=== PATIENT | male | born 1935 | race Caucasian/White ===

== ENCOUNTER 2017-02-17 09:39 | Outpatient (CLI) | payer MEDICARE, BC | END 2017-02-17 09:40 | disposition short-term general hospital (02) | DX: S01.01XA Laceration without foreign body of scalp, initial encounter (principal); M54.2 Cervicalgia; W22.8XXA Striking against or struck by other objects, initial encounter; W18.30XA Fall on same level, unspecified, initial encounter | CPT/HCPCS: A0425; A0429 ==

== ENCOUNTER 2017-07-27 14:08 | Outpatient (CLI) | payer MEDICARE, BC | END 2017-07-27 14:09 | disposition critical access hospital (66) | LOC: EMS 14:08 | PROVIDERS: ATTEND Surgery | DX: R03.1 Nonspecific low blood-pressure reading (principal); Z79.01 Long term (current) use of anticoagulants | CPT/HCPCS: A0425; A0429 ==

== ENCOUNTER 2017-07-27 14:39 | Emergency (ER) | payer MEDICARE, BC ==
--- NOTE | 2017-07-27 15:10 | ED Physician Documentation ---
History of Present Illness - Stated complaint Stated Complaint: LOW BLOOD PRESSURE - Chief complaint Chief Complaint: General - History obtained from History obtained from: Patient, Family () - History of Present Illness Timing: Today (82-year-old gentleman with history of coronary disease status post remote BiPAP, obstructive sleep apnea, A. fib on warfarin, and chronic kidney disease. He says he feels fine and has no complaints but per the he has been off balance and acting like he is lightheaded and he had low blood pressures for home health prior to arrival. They were lower on the right than the left but he does have a history of a subclavian stent on the right. He denies chest pain, back pain. There is some pedal edema and weight gain. He says he is not short of breath but the says that he takes his CPAP off at night and has been struggling to breathe without that on.) Review of Systems Constitutional: denies: Fever, Chills, Fatigue Nose: denies: Rhinorrhea / runny nose, Congestion Cardiac: denies: Chest pain / pressure, Palpitations Respiratory: reports: Dyspnea (He says no, the says he appears short of breath). denies: Cough GI: denies: Abdominal Pain, Nausea, Vomiting, Diarrhea, Bloody / black stool PD PAST MEDICAL HISTORY - Past Medical History Past Medical History: Yes Cardiovascular: Hypertension, High cholesterol Respiratory: None Neuro: CVA, Peripheral neuropathy Endocrine/Autoimmune: Type 2 diabetes GI: None : None HEENT: Chronic vision loss Psych: None Musculoskeletal: None Derm: None - Past Surgical History Past Surgical History: Yes General: Cholecystectomy Cardiovascular: Pacemaker - Present Medications Home Medications: Ambulatory Orders Medication Instructions Recorded Confirmed Allopurinol 100 mg PO DAILY 03/03/14 07/27/17 Aspirin 81 mg PO DAILY 03/03/14 07/27/17 Carvedilol [Coreg] 6.25 mg PO BID 03/03/14 07/27/17 Furosemide [Lasix] 20 mg PO QDAC 03/03/14 07/27/17 Insulin Glargine,Hum.rec.anlog 15 units SQ DAILY 03/03/14 07/27/17 [Lantus] Losartan Potassium [Cozaar] 12.5 mg PO DAILY 03/03/14 07/27/17 Ranitidine HCl [Zantac] 1 tab PO QDAC 03/03/14 07/27/17 Sertraline HCl 50 mg PO DAILY 03/03/14 07/27/17 Warfarin [Coumadin] 5 mg PO DAILY 03/03/14 07/27/17 Atorvastatin Calcium [Lipitor] 80 mg PO DAILY 10/25/15 07/27/17 Cholecalciferol (Vitamin D3) 1,000 unit PO DAILY 10/25/15 07/27/17 [Vitamin D3] Multivitamin [Daily Multiple 1 each PO DAILY 10/25/15 07/27/17 Vitamin] Ciprofloxacin HCl [Cipro] 500 mg PO BID #14 tablet 07/27/17 Rosuvastatin Calcium 20 mg PO DAILY 07/27/17 07/27/17 - Allergies Allergies/Adverse Reactions: Allergies Allergy/AdvReac Type Severity Reaction Status Date / Time Sulfa (Sulfonamide Allergy Rash Verified 07/27/17 14:44 Antibiotics) - Social History Does the pt smoke?: Yes Smoking Status: Current every day smoker Does the pt drink ETOH?: No Does the pt have substance abuse?: No - Immunizations Immunizations are current?: No Immunizations: TDAP >10years/unknown - POLST Patient has POLST: No PD ED PE NORMAL - Vitals Vital signs reviewed: Yes - General General: Alert and oriented X 3, No acute distress - HEENT HEENT: PERRL, EOMI - Neck Neck: Supple, no meningeal sign, No bony TTP - Cardiac Cardiac: Other (Irregularly irregular without murmur) - Respiratory Respiratory: No respiratory distress, Clear bilaterally - Abdomen Abdomen: Normal bowel sounds, Soft, Non tender - Derm Derm: Normal color, Warm and dry - Extremities Extremities: Other (Mild to moderate pitting pedal edema of both legs without calf tenderness.) - Neuro Neuro: Alert and oriented X 3 - Psych Psych: Normal mood, Normal affect Results - Vitals Vitals: Vital Signs - 24 hr 07/27/17 07/27/17 14:40 15:13 Temperature 36.1 C L Heart Rate 69 71 Respiratory 16 16 Rate Blood Pressure 128/59 L 121/72 O2 Saturation 94 99 Oxygen O2 Source Room air - EKG (time done) 1538 Rate: Rate (enter#) (60) Rhythm: Atrial fibrillation, Paced Intervals: LBBB Computer interpretation: Agree with computer - Labs Labs: Laboratory Tests 07/27/17 07/27/17 07/27/17 15:10 15:10 15:10 WBC 10.1 RBC 3.60 L Hgb 10.4 L Hct 31.3 L MCV 86.9 MCH 29.0 MCHC 33.4 RDW 15.7 H Plt Count 190 MPV 7.5 Neut # 6.5 Lymph # 2.8 Merrick # 0.5 Eos # 0.2 Baso # 0.1 Absolute Nucleated RBC 0.00 Nucleated RBC % 0.0 PT 23.9 H INR 2.1 H Sodium 133 L Potassium 4.8 Chloride 102 Carbon Dioxide 23 Anion Gap 8.0 BUN 37 H Creatinine 2.8 H Estimated GFR (MDRD) 22 L Glucose 210 H Calcium 9.7 Total Bilirubin 0.5 AST 17 ALT 16 Alkaline Phosphatase 92 Troponin I B-Natriuretic Peptide Total Protein 6.5 L Albumin 3.3 Globulin 3.2 Albumin/Globulin Ratio 1.0 Lipase 51 Urine Color Urine Clarity Urine pH Ur Specific [place] Urine Protein Urine Glucose (UA) Urine Ketones Urine Occult Blood Urine Nitrite Urine Bilirubin Urine Urobilinogen Ur Leukocyte Esterase Urine RBC Urine WBC Urine WBC Clumps Ur Epithelial Cells Ur Squamous Epith Cells Urine Bacteria Ur Microscopic Review Urine Culture Comments 07/27/17 07/27/17 07/27/17 15:10 15:10 15:20 WBC RBC Hgb Hct MCV MCH MCHC RDW Plt Count MPV Neut # Lymph # Merrick # Eos # Baso # Absolute Nucleated RBC Nucleated RBC % PT INR Sodium Potassium Chloride Carbon Dioxide Anion Gap BUN Creatinine Estimated GFR (MDRD) Glucose Calcium Total Bilirubin AST ALT Alkaline Phosphatase Troponin I 0.06 B-Natriuretic Peptide 240 H Total Protein Albumin Globulin Albumin/Globulin Ratio Lipase Urine Color YELLOW Urine Clarity CLEAR Urine pH 6.0 Ur Specific [place] 1.020 Urine Protein 100 H Urine Glucose (UA) NEGATIVE Urine Ketones NEGATIVE Urine Occult Blood TRACE-INTA Urine Nitrite NEGATIVE Urine Bilirubin NEGATIVE Urine Urobilinogen 0.2 (NORMAL) Ur Leukocyte Esterase SMALL H Urine RBC 0-5 Urine WBC >25 H Urine WBC Clumps PRESENT Ur Epithelial Cells FEW Transitional Ur Squamous Epith Cells MOD Squamous H Urine Bacteria Few Ur Microscopic Review INDICATED Urine Culture Comments NOT INDICATED PD MEDICAL DECISION MAKING - ED course ED course: 82-year-old gentleman with low blood pressures prior to arrival for home health but normal here. He is well-appearing and nontoxic and without complaint. Lab work is at his baseline with chronic renal insufficiency, anemia. He does not have a leukocytosis. He he does have a UTI. This is treated with Cipro. The patient and family were counseled as to the diagnosis and need for follow- up. I counseled the patient with regard to signs and symptoms that would necessitate an urgent reevaluation in the emergency department. They understand they are welcome to return at any time if worse or if not improving as expected. This document was made in part using voice recognition software. While efforts are made to proofread this documents, sound alike and grammatical errors may occur. Departure - Departure Disposition: Home, Self Care Clinical Impression: Adequate anticoagulation on anticoagulant therapy UTI (urinary tract infection) Qualifiers: Urinary tract infection type: acute cystitis Hematuria presence: without hematuria Qualified Code(s): N30.00 - Acute cystitis without hematuria Condition: Good Record reviewed to determine appropriate education?: Yes Instructions: ED UTI Cystitis Male Prescriptions: Ciprofloxacin HCl [Cipro] 500 mg PO BID #14 tablet Comments: Often times when you start antibiotics while you are taking anticoagulants such as Coumadin or warfarin, your INR will go up. You need to have your INR checked frequently while on the antibiotics. Have it checked in 3 days, again in 6 days, and at least weekly while you are on antibiotics. Dose adjustments of your anticoagulants may be necessary. We will culture your urine, the results should be done in 48-72 hours. If an antibiotic change is necessary we will call you. Return if worse in the meantime, especially if you develop increasing flank pain, fevers, or cannot keep down the medication. Call your doctor to arrange a follow-up appointment, make the next available appointment. In the interim, return anytime if worse or if new symptoms develop.
[2017-07-27 15:20] LABS: BASOPHILS # (AUTO) 0.1 10^3/uL (0.0-0.1); BASOPHILS % (AUTO) 1.1 %; EOSINOPHILS # (AUTO) 0.2 10^3/uL (0.0-0.7); EOSINOPHILS % (AUTO) 1.6 %; HCT - HEMATOCRIT 31.3 % (42.0-52.0); HGB - HEMOGLOBIN 10.4 g/dL (14.0-18.0); LYMPHOCYTES # (AUTO) 2.8 10^3/uL (1.5-3.5); LYMPHOCYTES % (AUTO) 27.4 %; MEAN CORPUSCULAR HGB CONC 33.4 g/dL (32.0-36.0); MEAN CORPUSCULAR VOLUME 86.9 fL (80.0-94.0); MEAN PLATELET VOLUME 7.5 fL (7.4-11.4); MONOCYTES # (AUTO) 0.5 10^3/uL (0.0-1.0); NEUTROPHILS # (AUTO) 6.5 10^3/uL (1.5-6.6); NEUTROPHILS % (AUTO) 64.9 %; RED CELL DISTRIBUTION WIDTH 15.7 % (12.0-15.0); UNCORRECTED WHITE BLOOD COUNT 10.1 x10^3/uL; WHITE BLOOD COUNT 10.1 x10^3/uL (4.8-10.8)
[2017-07-27 15:32] LABS: BILIRUBIN,TOTAL 0.5 mg/dL (0.2-1.0); CALCIUM 9.7 mg/dL (8.5-10.3); CREATININE 2.8 mg/dL (0.6-1.2); POTASSIUM 4.8 mmol/L (3.5-5.0); TOTAL PROTEIN 6.5 g/dL (6.7-8.2)
[2017-07-27 15:33] LABS: BILIRUBIN,URINE NEGATIVE (NEGATIVE)
[2017-07-27 15:34] LABS: UA w/ MICROSCOPIC CHARGE YES
[2017-07-27 15:39] LABS: INR 2.1 (0.8-1.2); PT - PROTHROMBIN TIME 23.9 secs (9.9-12.6)
--- NOTE | 2017-07-27 15:49 | XRAY Preliminary Report ---
Exam: XR CHEST 2 VIEW PA/LAT IMPRESSION: Chronic findings. No acute disease. [facility] SITE ID: [id number]
[2017-07-27 15:50] LABS: UR CULTURE IF IND NOT INDICATED; WBC,URINE >25 /HPF (0-3)
--- NOTE | 2017-07-27 15:51 | XRAY Report ---
EXAM: CHEST RADIOGRAPHY EXAM DATE: 07/27/2017 03:38 PM. CLINICAL HISTORY: Dyspnea. COMPARISON: 10/17/2014. TECHNIQUE: 2 views. FINDINGS: Lungs/Pleura: Hyperexpanded with coarse lung markings typical for COPD. No definite localized infiltr ate, consolidation, or effusion. Mediastinum: Normal heart size, unchanged. Upper lobe vessels not distended. Other: Permanent pacemaker on the left with intact leads. Status post median sternotomy. IMPRESSION: Chronic findings. No acute disease. [facility] Referring Provider Line: [phone] SITE ID: [id number]
[2017-07-27] MEDS ORDERED: CIPROFLOXACIN 250 MG TABLET PO STA (15:57)
[2017-07-27 16:04] VITALS: BP 130/67
[2017-07-27] MEDS ORDERED: CIPROFLOXACIN 250 MG TABLET PO ONE (16:06)
== END 2017-07-27 16:10 | disposition home or self-care (01) ==
LOC: EDUNIT# → ED 14:39
DX: N30.00 Acute cystitis without hematuria (principal); I48.91 Unspecified atrial fibrillation; E11.42 Type 2 diabetes mellitus with diabetic polyneuropathy; I10 Essential (primary) hypertension; Z79.4 Long term (current) use of insulin; E78.00 Pure hypercholesterolemia, unspecified; I25.10 Atherosclerotic heart disease of native coronary artery without angina pectoris; F17.200 Nicotine dependence, unspecified, uncomplicated; Z79.82 Long term (current) use of aspirin; Z79.01 Long term (current) use of anticoagulants; Z86.73 Personal history of transient ischemic attack (TIA), and cerebral infarction without residual deficits; Z95.0 Presence of cardiac pacemaker; Z95.5 Presence of coronary angioplasty implant and graft
CPT/HCPCS: 36415; 71020; 80053; 81001; 83690; 83880; 84484; 85025; 85610; 87086; 93005; 99284; A9270; 81003

== ENCOUNTER 2017-11-14 11:54 | Outpatient (CLI) | payer MEDICARE, BC | END 2017-11-14 11:55 | disposition critical access hospital (66) | LOC: EMS 11:54 | PROVIDERS: ATTEND Surgery | DX: S09.90XA Unspecified injury of head, initial encounter (principal); W01.0XXA Fall on same level from slipping, tripping and stumbling without subsequent striking against object, initial encounter; Y92.009 Unspecified place in unspecified non-institutional (private) residence as the place of occurrence of the external cause; Z79.01 Long term (current) use of anticoagulants | CPT/HCPCS: A0425; A0429 ==

== ENCOUNTER 2017-11-14 12:28 | Emergency (ER) | payer MEDICARE, BC ==
--- NOTE | 2017-11-14 12:39 | ED Physician Documentation ---
PD HPI Fall - Stated complaint Stated Complaint: GLF - Chief complaint Chief Complaint: Trauma Herbert - History obtained from History obtained from: Patient, Family (spouse), EMS - History of Present Illness Mechanism of injury: Tripped, Lost balance Fall distance: Standing position Where injury occurred: Home Timing - onset: Today Injury(ies) location: Head (abrasion right forehead) Associated symptoms: No: LOC, AMS, Amnesia, Nausea / vomiting Symptoms improve with: Rest Worsens with: Palpation Contributing factors: Anticoagulated. No: Intoxicated Similar symptoms before: No diagnosis (he says his balance has been worse the past several months. He is supposed to use walker but was not at this time.) Review of Systems Constitutional: denies: Fever, Chills Nose: denies: Rhinorrhea / runny nose, Congestion Throat: denies: Sore throat Cardiac: denies: Chest pain / pressure, Palpitations Respiratory: denies: Dyspnea, Cough GI: denies: Abdominal Pain, Nausea, Vomiting, Diarrhea : denies: Dysuria, Frequency Skin: reports: Abrasion (s). denies: Laceration (s) Musculoskeletal: denies: Neck pain, Back pain Neurologic: reports: Headache, Head injury. denies: Focal weakness, Numbness, Near syncope, Confused, Altered mental status PD PAST MEDICAL HISTORY - Past Medical History Cardiovascular: Hypertension, High cholesterol Respiratory: None Neuro: CVA, Peripheral neuropathy Endocrine/Autoimmune: Type 2 diabetes GI: None : None HEENT: Chronic vision loss Psych: None Musculoskeletal: None Derm: None - Past Surgical History Past Surgical History: Yes General: Cholecystectomy Cardiovascular: Pacemaker - Present Medications Home Medications: Ambulatory Orders Medication Instructions Recorded Confirmed Allopurinol 100 mg PO DAILY 03/03/14 07/27/17 Carvedilol [Coreg] 6.25 mg PO BID 03/03/14 07/27/17 Furosemide [Lasix] 20 mg PO QDAC 03/03/14 07/27/17 Insulin Glargine,Hum.rec.anlog 15 units SQ DAILY 03/03/14 07/27/17 [Lantus] Losartan Potassium [Cozaar] 12.5 mg PO DAILY 03/03/14 07/27/17 Sertraline HCl 50 mg PO DAILY 03/03/14 07/27/17 Warfarin [Coumadin] 5 mg PO DAILY 03/03/14 07/27/17 Cholecalciferol (Vitamin D3) 1,000 unit PO DAILY 10/25/15 07/27/17 [Vitamin D3] Multivitamin [Daily Multiple 1 each PO DAILY 10/25/15 07/27/17 Vitamin] Rosuvastatin Calcium 20 mg PO DAILY 07/27/17 07/27/17 - Allergies Allergies/Adverse Reactions: Allergies Allergy/AdvReac Type Severity Reaction Status Date / Time Sulfa (Sulfonamide Allergy Rash Verified 11/14/17 12:35 Antibiotics) - Social History Does the pt smoke?: Yes Smoking Status: Current every day smoker Does the pt drink ETOH?: No Does the pt have substance abuse?: No - Immunizations Immunizations are current?: No Immunizations: TDAP >10years/unknown - POLST Patient has POLST: No PD ED PE NORMAL - Vitals Vital signs reviewed: Yes - General General: Alert and oriented X 3, No acute distress, Well developed/nourished - HEENT HEENT: PERRL, EOMI, Other (abrasion right forehead, stippled bleeding. No lac per se. 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 cleansed and bandaged by nursing. CT is okay, without signs of bleeding. He does not have concussive symptoms. He feels he stumbled for the fall, so no workup for syncope/etc. ), d/w patient Departure - Departure Disposition: Home, Self Care Clinical Impression: Anticoagulant long-term use Accidental fall Qualifiers: Encounter type: initial encounter Qualified Code(s): W19.XXXA - Unspecified fall, initial encounter Forehead abrasion Qualifiers: Encounter type: initial encounter Qualified Code(s): S00.81XA - Abrasion of other part of head, initial encounter Condition: Stable Record reviewed to determine appropriate education?: Yes Instructions: ED Abrasion Follow-Up: Naveen Rock MD [Primary Care Provider] - Comments: Continue usual medications. Tylenol if needed for pains or aches. Cleanse the abrasion twice daily and apply some ointment topically. Recheck if signs of infection. Use your walker for balance as appropriate. Discharge Date/Time: 11/14/17 14:10
--- NOTE | 2017-11-14 13:16 | CT Preliminary Report ---
Exam: CT HEAD W/O IMPRESSION: 1. No acute intracranial abnormality nor bleed. 2. Small right forehead subgaleal scalp hematoma. [facility] SITE ID: [id number]
--- NOTE | 2017-11-14 13:22 | CT Report ---
EXAM: CT HEAD EXAM DATE: 11/14/2017 12:59 PM. CLINICAL HISTORY: Fall, right forehead trauma with right frontal hematoma, no loss of consciousness. Patient on Coumadin. COMPARISON: 03/03/2014. TECHNIQUE: Multiaxial CT images were obtained from the foramen magnum to the vertex. Reformats: Coron al. IV contrast: None. In accordance with CT protocol optimization, one or more of the following dose reduction techniques w ere utilized for this exam: automated exposure control, adjustment of mA and/or KV based on patient s ize, or use of iterative reconstructive technique. FINDINGS: Parenchyma: Remote 3 x 2 cm anterior mid right frontal infarct. No intraparenchymal hemorrhage. No evidence of mass, midline shift, or CT findings of acute infarctio n. Valentin-white differentiation is distinct. Diffuse chronic microangiopathic white matter changes are evident. Extraaxial Spaces: Normal for age. No subdural or epidural collections identified. Ventricles: The ventricles and cortical sulci are enlarged, consistent with age-related tissue loss. Sinuses and orbits: Imaged paranasal sinuses, orbits, and mastoids show no significant abnormality. Bones: No evidence of fracture or calvarial defect. Interval healing of the bilateral nasal fractures . Other: 0.5 x 2.2 cm right lateral forehead subgaleal hematoma. Dystrophic calcifications subcutaneous fat left frontoparietal scalp. IMPRESSION: 1. No acute intracranial abnormality nor bleed. 2. Small right forehead subgaleal scalp hematoma. [facility] Referring Provider Line: [phone] SITE ID: [id number]
[2017-11-14] MEDS ORDERED: BACITRACIN OINT TOP ONE (13:39)
[2017-11-14 14:07] VITALS: BP 146/79
== END 2017-11-14 14:10 | disposition home or self-care (01) ==
LOC: EDUNIT# → ED 12:28
DX: S00.81XA Abrasion of other part of head, initial encounter (principal); W01.0XXA Fall on same level from slipping, tripping and stumbling without subsequent striking against object, initial encounter; Y92.008 Other place in unspecified non-institutional (private) residence as the place of occurrence of the external cause; I10 Essential (primary) hypertension; E78.00 Pure hypercholesterolemia, unspecified; E11.42 Type 2 diabetes mellitus with diabetic polyneuropathy; F17.200 Nicotine dependence, unspecified, uncomplicated; Z79.4 Long term (current) use of insulin; Z79.01 Long term (current) use of anticoagulants
CPT/HCPCS: 70450; 85610; 99283; A9270

== ENCOUNTER 2017-12-05 13:18 | Outpatient (CLI) | payer MEDICARE, BC | END 2017-12-05 13:19 | disposition home or self-care (01) | LOC: SC 13:18 | PROVIDERS: ATTEND Internal Medicine Pulmonary Disease | DX: G47.33 Obstructive sleep apnea (adult) (pediatric) (principal) | CPT/HCPCS: 99203; G0463; 99212 ==

== ENCOUNTER 2018-01-23 19:09 | Outpatient (CLI) | payer MEDICARE, BC | END 2018-01-23 19:10 | disposition home or self-care (01) | LOC: SC 19:09 | PROVIDERS: ATTEND Internal Medicine Pulmonary Disease | DX: G47.33 Obstructive sleep apnea (adult) (pediatric) (principal); G47.61 Periodic limb movement disorder; I48.91 Unspecified atrial fibrillation | CPT/HCPCS: 95810 ==

== ENCOUNTER 2018-01-29 18:55 | Outpatient (CLI) | payer MEDICARE, BC | END 2018-01-29 18:56 | disposition critical access hospital (66) | LOC: EMS 18:55 | PROVIDERS: ATTEND Surgery | DX: S09.90XA Unspecified injury of head, initial encounter (principal); W18.39XA Other fall on same level, initial encounter; Z91.81 History of falling; Y92.009 Unspecified place in unspecified non-institutional (private) residence as the place of occurrence of the external cause ==

== ENCOUNTER 2018-01-29 19:29 | Emergency (ER) | payer MEDICARE, BC ==
--- NOTE | 2018-01-29 19:40 | ED Physician Documentation ---
PD HPI HEAD INJURY - Stated complaint Stated Complaint: GLF - HIT HEAD - Chief complaint Chief Complaint: Trauma Hd/Nk - History obtained from History obtained from: Patient, EMS - History of Present Illness Mechanism of head injury: Fell Where head injury occurred: Home Timing - onset: Today Pain level max: 1 Pain level now: 1 Location of injury: Right Quality of pain: Aching Associated symptoms: No: LOC, AMS, Amnesia, Nausea / vomiting, Neck pain, Paresthesias, Seizures, Ear drainage, Nasal drainage Symptoms improve with: Rest Symptoms worsen with: Palpation, Movement Contributing factors: Anticoagulated (Patient takes warfarin) Similar symptoms before: Diagnosis (States has had a previous intracranial hemorrhage, does not remember when) Recently seen: Not recently seen Review of Systems Cardiac: denies: Chest pain / pressure Respiratory: denies: Cough GI: denies: Abdominal Pain, Vomiting Skin: denies: Rash Musculoskeletal: denies: Neck pain, Back pain, Extremity pain Neurologic: denies: Focal weakness, Numbness, Confused, Altered mental status, Headache, LOC PD PAST MEDICAL HISTORY - Past Medical History Cardiovascular: Hypertension, High cholesterol Respiratory: None Neuro: CVA, Peripheral neuropathy Endocrine/Autoimmune: Type 2 diabetes GI: None : None HEENT: Chronic vision loss Psych: None Musculoskeletal: None Derm: None - Past Surgical History Past Surgical History: Yes General: Cholecystectomy Cardiovascular: Pacemaker - Present Medications Home Medications: Ambulatory Orders Medication Instructions Recorded Confirmed Allopurinol 100 mg PO DAILY 03/03/14 07/27/17 Carvedilol [Coreg] 6.25 mg PO BID 03/03/14 07/27/17 Furosemide [Lasix] 20 mg PO QDAC 03/03/14 07/27/17 Insulin Glargine,Hum.rec.anlog 15 units SQ DAILY 03/03/14 07/27/17 [Lantus] Losartan Potassium [Cozaar] 12.5 mg PO DAILY 03/03/14 07/27/17 Sertraline HCl 50 mg PO DAILY 03/03/14 07/27/17 Warfarin [Coumadin] 5 mg PO DAILY 03/03/14 07/27/17 Cholecalciferol (Vitamin D3) 1,000 unit PO DAILY 10/25/15 07/27/17 [Vitamin D3] Multivitamin [Daily Multiple 1 each PO DAILY 10/25/15 07/27/17 Vitamin] Rosuvastatin Calcium 20 mg PO DAILY 07/27/17 07/27/17 - Allergies Allergies/Adverse Reactions: Allergies Allergy/AdvReac Type Severity Reaction Status Date / Time Sulfa (Sulfonamide Allergy Rash Verified 11/14/17 12:35 Antibiotics) - Social History Does the pt smoke?: Yes Smoking Status: Current every day smoker Does the pt drink ETOH?: No Does the pt have substance abuse?: No - Immunizations Immunizations are current?: No Immunizations: TDAP >10years/unknown - POLST Patient has POLST: No PD ED PE NORMAL - Vitals Vital signs reviewed: Yes - General General: Alert and oriented X 3, No acute distress - HEENT HEENT: PERRL, EOMI, Ears normal, Moist mucous membranes, Pharynx benign, Other ( Abrasion and slight hematoma to the right congregational) - Neck Neck: Supple, no meningeal sign, No bony TTP - Cardiac Cardiac: RRR, Strong equal pulses - Respiratory Respiratory: No respiratory distress, Clear bilaterally - Abdomen Abdomen: Soft, Non tender, Non distended - Derm Derm: Warm and dry - Neuro Neuro: Alert and oriented X 3 - Psych Psych: Normal mood, Normal affect Results - Vitals Vitals: Vital Signs - 24 hr 01/29/18 01/29/18 19:32 20:47 Temperature 36.4 C L 36.1 C L Heart Rate 76 69 Respiratory 18 18 Rate Blood Pressure 123/76 142/83 H O2 Saturation 98 97 Oxygen O2 Source Room air - Labs Labs: Laboratory Tests 01/29/18 19:36 PT 20.9 H INR 1.9 H - Rads (name of study) Head CT Radiology: Prelim report reviewed, EMP read contemporaneously, See rad report ( No acute intracranial abnormality) PD MEDICAL DECISION MAKING - ED course Complexity details: reviewed results, re-evaluated patient, considered differential, d/w patient, d/w family ED course: Patient is an 82-year-old male who presents to the emergency department after a ground-level fall, struck his head on a duck decoy in his living room. No acute findings on head CT. No altered mental status. No evidence of cervical spine or thoracic or lumbar spine injury. Patient and family counseled regarding signs and symptoms for which I believe and urgent re-evaluation would be necessary. Patient with good understanding of and agreement to plan and is comfortable going home at this time This document was made in part using voice recognition software. While efforts are made to proofread this document, sound alike and grammatical errors may occur. Departure - Departure Disposition: 01 Home, Self Care Clinical Impression: Adequate anticoagulation on anticoagulant therapy Closed head injury Qualifiers: Encounter type: initial encounter Qualified Code(s): S09.90XA - Unspecified injury of head, initial encounter Accidental fall Qualifiers: Encounter type: initial encounter Qualified Code(s): W19.XXXA - Unspecified fall, initial encounter Condition: Good Instructions: ED Head Injury Closed Follow-Up: Naveen Rock MD [Primary Care Provider] - Within 1 week Comments: Your CT scan is normal tonight. Return if you worsen. Discharge Date/Time: 01/29/18 20:58
[2018-01-29 19:51] LABS: INR 1.9 (0.8-1.2); PT - PROTHROMBIN TIME 20.9 secs (9.9-12.6)
--- NOTE | 2018-01-29 20:30 | CT Report ---
EXAM: CT HEAD EXAM DATE: 01/29/2018 08:01 PM. CLINICAL HISTORY: Fall, hit head, pt is on warfarin. COMPARISON: 11/14/2017 CT head. TECHNIQUE: Multiaxial CT images were obtained from the foramen magnum to the vertex. Reformats: Coron al. IV contrast: None. In accordance with CT protocol optimization, one or more of the following dose reduction techniques w ere utilized for this exam: automated exposure control, adjustment of mA and/or KV based on patient s ize, or use of iterative reconstructive technique. FINDINGS: Parenchyma: There is a 3.2 x 3.0; focus of right frontal lobe encephalomalacia. No evidence of acute infarction or hemorrhage. Extraaxial Spaces: Normal for age. No subdural or epidural collections identified. Ventricles: Normal in size and position. Sinuses and Orbits: Imaged paranasal sinuses, orbits, and mastoids show no significant abnormality. Bones: No evidence of fracture or calvarial defect. Other: None. IMPRESSION: 1. Chronic right frontal lobe infarction. 2. No acute intracranial abnormality. [facility] Referring Provider Line: [phone] SITE ID: [id number]
[2018-01-29 20:48] VITALS: BP 142/83
== END 2018-01-29 20:58 | disposition home or self-care (01) ==
LOC: EDUNIT# → ED 19:29
DX: S09.90XA Unspecified injury of head, initial encounter (principal); W18.39XA Other fall on same level, initial encounter; Z79.01 Long term (current) use of anticoagulants; I10 Essential (primary) hypertension; E78.00 Pure hypercholesterolemia, unspecified; E11.42 Type 2 diabetes mellitus with diabetic polyneuropathy; Z79.4 Long term (current) use of insulin; Z86.73 Personal history of transient ischemic attack (TIA), and cerebral infarction without residual deficits; Z95.0 Presence of cardiac pacemaker; F17.200 Nicotine dependence, unspecified, uncomplicated
CPT/HCPCS: 36415; 70450; 85610; 99283

== ENCOUNTER 2018-02-19 20:48 | Outpatient (CLI) | payer MEDICARE, BC | END 2018-02-19 20:49 | disposition EMS.NT | LOC: EMS 20:48 | PROVIDERS: ATTEND Surgery | DX: Z03.89 Encounter for observation for other suspected diseases and conditions ruled out (principal); W18.39XA Other fall on same level, initial encounter; Y92.002 Bathroom of unspecified non-institutional (private) residence as the place of occurrence of the external cause ==

== ENCOUNTER 2018-03-08 09:14 | Outpatient (CLI) | payer MEDICARE, BC | END 2018-03-08 09:15 | disposition home or self-care (01) | LOC: SC 09:14 | PROVIDERS: ATTEND Nurse Practitioner Family | DX: G47.33 Obstructive sleep apnea (adult) (pediatric) (principal); G47.61 Periodic limb movement disorder | CPT/HCPCS: 99214; G0463; 99212 ==

== ENCOUNTER 2018-04-02 02:57 | Outpatient (CLI) | payer MEDICARE, BC | END 2018-04-02 02:58 | disposition critical access hospital (66) | LOC: EMS 02:57 | PROVIDERS: ATTEND Surgery | DX: R06.00 Dyspnea, unspecified (principal); R53.1 Weakness | CPT/HCPCS: A0425; A0429 ==

== ENCOUNTER 2018-04-02 03:28 | Inpatient (IN) | payer MEDICARE, BC ==
--- NOTE | 2018-04-02 03:38 | ED Physician Documentation ---
PD HPI DYSPNEA - Stated complaint Stated Complaint: SOA - History obtained from History obtained from: Patient - History of Present Illness Timing - onset: How many days ago (2 days ago, onset of general malaise, nausea with vomiting and then some diarrhea. Has continued to feel weak, and then this past day his has noted him having dyspnea more than baseline, trouble standing and walking due to weakness (with 2 falls), and increased leg edema over baseline.) Timing - onset during: Light activity (just trying to get to the bathroom) Timing - duration: Days Timing - details: Gradual onset (over the past couple of days), Still present Inciting event(s): URI (not too much of a cough per se, but has had weakness, nausea/vomiting, and some diarrhea.). No: Out of meds Worsened by: Exertion ( says he has not been able to get himself out of bed the past couple of days), Laying flat Associated symptoms: Bilateral edema. No: Fever, Cough, Chest pain / discomfort Similar symptoms before: Diagnosis (CHF and CAD, valvular heart disease) Recently seen: Not recently seen Review of Systems Constitutional: reports: Chills, Myalgias, Fatigue. denies: Fever Nose: denies: Rhinorrhea / runny nose, Congestion Throat: denies: Sore throat Cardiac: reports: Pedal edema. denies: Chest pain / pressure, Palpitations, Calf pain Respiratory: reports: Dyspnea. denies: Cough GI: reports: Nausea, Vomiting, Diarrhea. denies: Abdominal Pain, Hematemesis, Bloody / black stool : denies: Dysuria, Frequency Musculoskeletal: denies: Neck pain, Back pain Neurologic: reports: Generalized weakness. denies: Focal weakness, Numbness, Near syncope, Confused, Altered mental status, Headache PD PAST MEDICAL HISTORY - Past Medical History Cardiovascular: Hypertension, High cholesterol, Valve disorder (aortic stenosis , and has plan for intravascular aortic repair in [place] in couple months.) Respiratory: None Endocrine/Autoimmune: Type 2 diabetes GI: None : None HEENT: Chronic vision loss Psych: None Musculoskeletal: None Derm: None - Past Surgical History Past Surgical History: Yes General: Cholecystectomy Cardiovascular: Pacemaker - Present Medications Home Medications: Ambulatory Orders Medication Instructions Recorded Confirmed Allopurinol 100 mg PO DAILY 03/03/14 07/27/17 Carvedilol [Coreg] 6.25 mg PO BID 03/03/14 07/27/17 Furosemide [Lasix] 20 mg PO QDAC 03/03/14 07/27/17 Insulin Glargine,Hum.rec.anlog 15 units SQ DAILY 03/03/14 07/27/17 [Lantus] Losartan Potassium [Cozaar] 12.5 mg PO DAILY 03/03/14 07/27/17 Sertraline HCl 50 mg PO DAILY 03/03/14 07/27/17 Warfarin [Coumadin] 5 mg PO DAILY 03/03/14 07/27/17 Cholecalciferol (Vitamin D3) 1,000 unit PO DAILY 10/25/15 07/27/17 [Vitamin D3] Multivitamin [Daily Multiple 1 each PO DAILY 10/25/15 07/27/17 Vitamin] Rosuvastatin Calcium 20 mg PO DAILY 07/27/17 07/27/17 - Allergies Allergies/Adverse Reactions: Allergies Allergy/AdvReac Type Severity Reaction Status Date / Time Sulfa (Sulfonamide Allergy Rash Verified 04/02/18 03:33 Antibiotics) - Living Situation Living Situation: reports: With spouse/s.o. Living Arrangement: reports: At home - Social History Does the pt smoke?: Yes Smoking Status: Current every day smoker Does the pt drink ETOH?: No Does the pt have substance abuse?: No - Immunizations Immunizations are current?: No Immunizations: TDAP >10years/unknown - POLST Patient has POLST: No PD ED PE NORMAL - Vitals Vital signs reviewed: Yes - General General: Alert and oriented X 3, Well developed/nourished - HEENT HEENT: Pharynx benign - Neck Neck: Supple, no meningeal sign, No adenopathy, Other (noted at 45 degrees) - Cardiac Cardiac: RRR. No: No murmur (2/6 murmur left chest up to carotids. ) - Respiratory Respiratory: No: Clear bilaterally (some faint crackles at bases. No coarse sounds. ) - Abdomen Abdomen: Soft, Non tender, Non distended. No: Normal bowel sounds (decreased) - Male Male : Deferred - Rectal Rectal: Deferred - Back Back: No CVA TTP - Derm Derm: Normal color, Warm and dry - Extremities Extremities: No tenderness to palpate, Normal ROM s pain, No calf tenderness / cord, Other (2+ edema in both legs, slightly more right leg. ) - Neuro Neuro: Alert and oriented X 3, No motor deficit, Normal speech Eye Opening: Spontaneous Motor: Obeys Commands Verbal: Oriented GCS Score: 15 Results - Vitals Vitals: Vital Signs - 24 hr 04/02/18 04/02/18 03:33 05:52 Temperature 36.5 C Heart Rate 97 88 Respiratory 18 20 Rate Blood Pressure 94/72 100/56 L O2 Saturation 94 92 Oxygen O2 Source Room air - EKG (time done) 04:23 Rate: Rate (enter#) (89) Rhythm: Atrial fibrillation Branch: Normal Intervals: Wide QRS Ischemia: Non specific changes Compare to prior EKG: Unchanged from prior EKG - Labs Labs: Laboratory Tests 04/02/18 04/02/18 04/02/18 04:45 04:45 04:45 WBC 17.1 H RBC 3.92 L Hgb 11.2 L Hct 34.5 L MCV 88.1 MCH 28.7 MCHC 32.5 RDW 16.8 H Plt Count 189 MPV 7.6 Neut # (Auto) 14.1 H Lymph # (Auto) 1.9 Mcmullen # (Auto) 1.1 H Eos # (Auto) 0.0 Baso # (Auto) 0.1 Absolute Nucleated RBC 0.01 Nucleated RBC % 0.0 PT INR Sodium 128 L Potassium 5.2 H Chloride 94 L Carbon Dioxide 26 Anion Gap 8.0 BUN 58 H Creatinine 3.7 H Estimated GFR (MDRD) 16 L Glucose 253 H Calcium 9.9 Magnesium 2.4 Total Bilirubin 1.2 H AST 16 ALT 13 Alkaline Phosphatase 101 Troponin I B-Natriuretic Peptide 508 H Total Protein 7.1 Albumin 3.0 L Globulin 4.1 Albumin/Globulin Ratio 0.7 L Lipase 23 04/02/18 04/02/18 04:45 04:45 WBC RBC Hgb Hct MCV MCH MCHC RDW Plt Count MPV Neut # (Auto) Lymph # (Auto) Mcmullen # (Auto) Eos # (Auto) Baso # (Auto) Absolute Nucleated RBC Nucleated RBC % PT 17.4 H INR 1.6 H Sodium Potassium Chloride Carbon Dioxide Anion Gap BUN Creatinine Estimated GFR (MDRD) Glucose Calcium Magnesium Total Bilirubin AST ALT Alkaline Phosphatase Troponin I 0.23 B-Natriuretic Peptide Total Protein Albumin Globulin Albumin/Globulin Ratio Lipase - Rads (name of study) chest xray Radiology: Prelim report reviewed, EMP read contemporaneously (enlarged heart, no significant fluid. no infiltrates. ) PD MEDICAL DECISION MAKING - ED course Complexity details: considered differential (He has some leg edema and dyspnea with fine crackles at bases, moderately elevated BNP and nondiagnostic troponin (likely relates to elevated creatinine but could be ACS) so concern for some CHF , but also with history c/w dehydration (some vomiting and less intake for 2 days, elevated creatinine over baseline, general weakness, and lower BP). So I feel steady slower hydration would be more prudent that larger fluid boluses. Repeat labs to evaluate renal function improvement and not worsening CHF. ) - Sepsis Event Vital Signs: Vital Signs - 24 hr 04/02/18 04/02/18 03:33 05:52 Temperature 36.5 C Heart Rate 97 88 Respiratory 18 20 Rate Blood Pressure 94/72 100/56 L O2 Saturation 94 92 Oxygen O2 Source Room air Departure - Departure Disposition: ED Place in Observation Clinical Impression: Vomiting and diarrhea, General weakness, Dehydration, Renal insufficiency Congestive heart failure (CHF) Qualifiers: Heart failure type: combined systolic and diastolic Heart failure chronicity: acute on chronic Qualified Code(s): I50.43 - Acute on chronic combined systolic (congestive) and diastolic (congestive) heart failure Condition: Stable Record reviewed to determine appropriate education?: Yes
[2018-04-02] MEDS ORDERED: SODIUM CHLORIDE 0.9% 250 ML IV ONE (04:05)
[2018-04-02] MEDS ORDERED: ONDANSETRON 4 MG/2 ML VIAL IVP STA (04:06)
--- NOTE | 2018-04-02 05:08 | XRAY Report ---
Procedure Date: 04/02/2018 Accession Number: [id number] / [id number] Procedure: XR - Chest 2 View X-Ray CPT Code: 16128 FULL RESULT: EXAM: CHEST RADIOGRAPHY EXAM DATE: 04/02/2018 04:45 AM. CLINICAL HISTORY: Chest pain left sided. COMPARISON: CHEST 2 VIEW PA/LAT 07/27/2017. TECHNIQUE: 2 views. FINDINGS: Lungs/Pleura: No alveolar consolidation or pleural effusion seen. No pneumothorax. Mediastinum: Heart size is normal. Aortic atherosclerosis. Other: Median sternotomy and CABG. Left-sided implanted defibrillator is unchanged. IMPRESSION: 1. Postoperative changes. No acute abnormality seen. RADIA
[2018-04-02 05:20] LABS: INR 1.6 (0.8-1.2); PT - PROTHROMBIN TIME 17.4 secs (9.9-12.6)
[2018-04-02 05:22] LABS: BASOPHILS # (AUTO) 0.1 10^3/uL (0.0-0.1); BASOPHILS % (AUTO) 0.3 %; HGB - HEMOGLOBIN 11.2 g/dL (14.0-18.0); LYMPHOCYTES # (AUTO) 1.9 10^3/uL (1.5-3.5); LYMPHOCYTES % (AUTO) 11.1 %; MEAN CORPUSCULAR HEMOGLOBIN 28.7 pg (27.0-31.0); MEAN CORPUSCULAR HGB CONC 32.5 g/dL (32.0-36.0); MEAN CORPUSCULAR VOLUME 88.1 fL (80.0-94.0); MEAN PLATELET VOLUME 7.6 fL (7.4-11.4); MONOCYTES # (AUTO) 1.1 10^3/uL (0.0-1.0); MONOCYTES % (AUTO) 6.4 %; NEUTROPHILS # (AUTO) 14.1 10^3/uL (1.5-6.6); NEUTROPHILS % (AUTO) 82.2 %; PLT - PLATELET COUNT 189 10^3/uL (130-450); RED BLOOD COUNT 3.92 10^6/uL (4.70-6.10); RED CELL DISTRIBUTION WIDTH 16.8 % (12.0-15.0); WHITE BLOOD COUNT 17.1 x10^3/uL (4.8-10.8)
[2018-04-02 05:29] LABS: ALBUMIN/GLOBULIN RATIO 0.7 (1.0-2.2); BILIRUBIN,TOTAL 1.2 mg/dL (0.2-1.0); CALCIUM 9.9 mg/dL (8.5-10.3); CREATININE 3.7 mg/dL (0.6-1.2); MAGNESIUM 2.4 mg/dL (1.7-2.8); TOTAL PROTEIN 7.1 g/dL (6.7-8.2)
[2018-04-02] MEDS ORDERED: SODIUM CHLORIDE 0.9% 1,000 ML IV ONE (06:04)
[2018-04-02] MEDS ORDERED: oxyCODONE 5 MG TABLET PO PRN (06:45)
[2018-04-02] MEDS ORDERED: SODIUM CHLORIDE FLUSH 0.9% 10 ML SYRINGE IVP PRN (06:45)
[2018-04-02] MEDS: SODIUM CHLORIDE FLUSH 0.9% 10 ML SYRINGE IVP SCH ×2 (08:33→16:49)
[2018-04-02] MEDS ORDERED: LIDOCAINE JELLY 2% 5 ML TUBE TOP PRN (08:54)
[2018-04-02] MEDS ORDERED: ALLOPURINOL 100 MG TABLET PO SCH (09:00)
[2018-04-02] MEDS ORDERED: FUROSEMIDE 20 MG TABLET PO SCH (09:00)
[2018-04-02] MEDS ORDERED: INSULIN GLARGINE HUM REC ANLOG 15 UNIT SQ SCH (09:00)
[2018-04-02] MEDS ORDERED: LOSARTAN POTASSIUM 12.5 MG PO SCH (09:00)
[2018-04-02] MEDS ORDERED: SODIUM CHLORIDE 1 GM TABLET PO SCH (09:00)
[2018-04-02] MEDS: MULTIVITAMIN TABLET PO SCH (09:03)
[2018-04-02] MEDS: CHOLECALCIFEROL 1,000 UNIT TABLET PO SCH (09:03)
[2018-04-02] MEDS: SERTRALINE 50 MG TABLET PO SCH ×2 (09:03→09:06)
[2018-04-02] MEDS: SODIUM CHLORIDE 0.9% 1,000 ML IV SCH ×2 (09:18→22:33)
[2018-04-02 09:35] LABS: HB2 TOTAL 12.4 g/dL; HEMOGLOBIN A1C 0.87 g/dL; HEMOGLOBIN A1C % 8.6 % (4.6-6.2)
[2018-04-02] MEDS: CARVEDILOL 3.125 MG TABLET PO SCH ×2 (12:13→21:02)
[2018-04-02] MEDS: INSULIN ASPART 300 UNIT/3 ML PEN SUBQ SCH ×3 (12:13→21:04)
[2018-04-02] MEDS: WARFARIN 5 MG TABLET PO SCH (13:36)
[2018-04-02 14:13] LABS: BILIRUBIN,URINE NEGATIVE (NEGATIVE); GLUCOSE, URINE (UA) NEGATIVE (NEGATIVE); KETONES,URINE (UA) NEGATIVE (NEGATIVE); LEUKOCYTE ESTERASE, URINE LARGE (NEGATIVE); NITRITE,URINE NEGATIVE (NEGATIVE); OCCULT BLOOD,URINE MODERATE (NEGATIVE); PROTEIN,URINE 100 mg/dL (NEGATIVE); UROBILINOGEN,URINE 0.2 (NORMAL) E.U./dL (NORMAL)
[2018-04-02 14:15] LABS: CLARITY,URINE CLOUDY (CLEAR)
[2018-04-02 14:23] LABS: BACTERIA,URINE Many /HPF (None Seen); SQUAMOUS EPITHELIAL CELL,UR RARE Squamous (<= Few); WBC CLUMPS,URINE PRESENT
--- NOTE | 2018-04-02 15:52 | PROVIDER PROGRESS NOTE ---
Subjective - Prog Note Date Prog Note Date: 04/02/18 Prog Note Time: 08:00 - Subjective Pt reports feeling: Improved Subjective: Nadir has no complaints and states that he has no pain. He denies shortness of breath, chest pain or tightness, nausea, vomiting or a new cough. Current Medications - Current Medications Current Medications: Active Medications Atorvastatin Calcium (Lipitor) 80 mg PO QPM [facility] Carvedilol (Coreg) 6.25 mg PO BID [facility] Last Admin: 04/02/18 12:13 Dose: 6.25 mg Cholecalciferol (Vitamin D3) 1,000 unit PO DAILY [facility] Last Admin: 04/02/18 09:03 Dose: 1,000 unit Heparin Sodium (Porcine) () 2,000 unit IVP Q6H PRN PRN Reason: Anti -Xa <0.2 Sodium Chloride (Normal Saline 0.9%) 1,000 mls @ 75 mls/hr IV .[id number] [facility] Last Admin: 04/02/18 09:18 Dose: 75 mls/hr Ceftriaxone Sodium 1 gm/ (Sodium Chloride) 100 mls @ 200 mls/hr IV DAILY [facility] Last Admin: 04/02/18 16:44 Dose: 200 mls/hr Heparin Sodium/Dextrose () 25,000 unit in 500 mls @ 25.2 mls/hr IV .[id number] [facility] ; 15 UNIT/KG/HR PRN Reason: Protocol Insulin Aspart (Novolog) 1 - 5 unit SUBQ 0800,1200,1700,2100 LINH PRN Reason: Protocol Last Admin: 04/02/18 12:13 Dose: 4 unit Insulin Glargine (Lantus Solostar) 15 unit SUBQ QPM [facility] Lidocaine HCl (Xylocaine Jelly 2%) 2.5 ml TOP Q3H PRN PRN Reason: PAIN Multivitamins (Theragran) 1 tab PO DAILYWM [facility] Last Admin: 04/02/18 09:03 Dose: 1 tab Oxycodone HCl (Roxicodone) 5 mg PO Q4HR PRN PRN Reason: Pain 5 to 7 Polyethylene Glycol (Miralax) 17 gm PO DAILY [facility] Sertraline HCl (Zoloft) 50 mg PO DAILY [facility] Last Admin: 04/02/18 09:06 Dose: Not Given Sodium Chloride (Normal Saline Flush 0.9%) 10 ml IVP PRN PRN PRN Reason: NEEDED PER PROVIDER ORDERS Sodium Chloride (Normal Saline Flush 0.9%) 10 ml IVP 0100,0900,1700 [facility] Last Admin: 04/02/18 08:33 Dose: Not Given Warfarin Sodium (Coumadin) 5 mg PO QDWARFARIN [facility] Last Admin: 04/02/18 13:36 Dose: 5 mg Allopurinol 100 mg PO DAILY 03/03/14 Furosemide [Lasix] 20 mg PO DAILY 03/03/14 Warfarin [Coumadin] 5 mg PO DAILY 03/03/14 Cholecalciferol (Vitamin D3) [Vitamin D3] 1,000 unit PO DAILY 10/25/15 Multivitamin [Daily Multiple Vitamin] 1 each PO DAILY 10/25/15 Atorvastatin Calcium [Lipitor] 80 mg PO QPM 04/02/18 Carvedilol [Carvedilol] 6.25 mg PO BID 04/02/18 Insulin Detemir [Levemir Flextouch] 15 unit SUBQ QPM 04/02/18 Sertraline HCl 50 mg PO DAILY 04/02/18 Tamsulosin [Flomax] 0.4 mg PO DAILY 04/02/18 Objective - Vital Signs/Intake & Output Reviewed Vital Signs: Yes Vital Signs: Vital Signs x48h Temp Pulse Pulse Pulse Resp Resp Resp 04/02/18 15:30 37.5 C 89 16 04/02/18 14:18 30 H 04/02/18 13:00 37.4 C 92 22 04/02/18 11:40 88 35 H 22 BP BP Pulse Ox Pulse Ox Pulse Ox 04/02/18 15:30 112/68 92 04/02/18 14:18 95 04/02/18 13:00 101/57 L 95 04/02/18 11:40 109/63 92 94 Intake & Output: Intake & Output 03/30/18 03/31/18 04/01/18 04/02/18 23:59 23:59 23:59 23:59 Intake Total 1240 Output Total 100 Balance 1140 - Objective General Appearance: positive: No acute distress, Alert Eyes Bilateral: positive: PERRL Eyes: OU Conjunctivae pale ENT: positive: ENT inspection nml, Pharyngeal erythema, Dry mucous membranes Neck: positive: Nml inspection, Thyroid nml, No JVD, Trachea midline, Lymphadenopathy (R), Lymphadenopathy (L), Stiff neck Respiratory: positive: Chest non-tender, No respiratory distress, Wheezes, Other (diminished with scattered crackles bilaterally.) Cardiovascular: positive: No gallop, Irregularly irregular, Systolic murmur, Decreased pulse(s) Peripheral Pulses: 1+ Radial (R), 1+ Radial (L) Abdomen: positive: Non-tender, Nml bowel sounds, Other (obese, soft) Back: positive: Nml inspection Skin: positive: No rash, Warm, Dry Extremities: positive: Non-tender, Pedal edema (chronic, BLE edema), Joint swelling Neurologic/Psychiatric: positive: CN's nml (2-12), Motor nml, Disoriented to time, Weakness, Sensory loss, Slurred/abnml speech (sluggish speech at times), Depressed mood/affect Reflexes: Bicep (R): 2+, Bicep (L): 2+ - Lab Results Fish Bones: 04/02/18 04:45 04/02/18 04:45 Other Labs: Lab Results x24hrs 04/02/18 04/02/18 Range/Units 14:00 10:51 Troponin I 0.20 (<0.49) ng/mL Urine Color YELLOW Urine Clarity CLOUDY (CLEAR) Urine pH 6.0 (5.0-7.5) PH Ur Specific [place] 1.015 (1.002-1.030) Urine Protein 100 H (NEGATIVE) mg/dL Urine Glucose (UA) NEGATIVE (NEGATIVE) mg/dL Urine Ketones NEGATIVE (NEGATIVE) mg/dL Urine Occult Blood MODERATE H (NEGATIVE) Urine Nitrite NEGATIVE (NEGATIVE) Urine Bilirubin NEGATIVE (NEGATIVE) Urine Urobilinogen 0.2 (NORMAL) (NORMAL) E.U./dL Ur Leukocyte Esterase LARGE H (NEGATIVE) Urine RBC 6-10 H (0-5) /HPF Urine WBC >25 H (0-3) /HPF Urine WBC Clumps PRESENT Ur Squamous Epith Cells RARE Squamous (<= Few) Urine Bacteria Many H (None Seen) /HPF Ur Microscopic Review INDICATED Urine Culture Comments INDICATED - Diagnostic Imaging Diagnostic Imaging Results: positive: Final report reviewed ABX Reporting Has patient been on IV antibiotics over the past 48 hours?: Yes Assessment/Plan - Problem List (1) UTI (urinary tract infection) Impression: A urine sample was obtained today which indicates UTI. Cultures are pending. The patient had increased WBC count if 17.1, afebrile, but with slight mental status changes. The patient denies dysuria. Plan: Start IV Ceftriaxone today for treatment of complicated UTI. Qualifiers: Urinary tract infection type: acute cystitis Hematuria presence: without hematuria Qualified Code(s): N30.00 - Acute cystitis without hematuria (2) Congestive heart failure (CHF) Impression: The patient had an elevated BNP of >500 and is prescribed lasix PO and coreg, and at home. He has a history of 6-vessel CABG that was done in the early . He remains with a left upper chest ICD. The patient appears quite dehydrated based on labs, so lasix is on hold. Preliminary echo results indicate a decreased EF of 50-55%, moderate to severe aortic stenosis, and pulmonary hypertension. Plan: Daily BNP, CMP and continue coreg. Qualifiers: Heart failure type: combined systolic and diastolic Heart failure chronicity: acute on chronic Qualified Code(s): I50.43 - Acute on chronic combined systolic (congestive) and diastolic (congestive) heart failure (3) Anticoagulant long-term use Impression: The patient is prescribed Warfarin at home and the final dose is still being verified. Today he was found to be sub theraputic with an INR of 1.6. Due to the patient's failing kidney's, a heparin gtt has been initiated. Plan: Monitor labs and signs of bleeding. (4) Diabetes mellitus type 2 in obese Impression: The patient is insulin dependent at home and has an elevated Hemoglobin A1C upon admission of 8.6%. Plan: Start Lantus scheduled, SSI. Daily labs and carb controlled diet. (5) CKD (chronic kidney disease) stage 4, GFR 15-29 ml/min Impression: The patient is noted to be in acute kidney failure with a GFR of just 13, a creatinine of 3.7 and this was likely a consequence of severe dehydration. Plan: Avoid nephrotoxins, gentle hydration and daily labs. (6) Multiple falls Impression: In a chart review, the patient is noted to have multiple falls with injury. This led to his current admission when he was found to be nauseated, vomiting and this was likely linked to this illness, dehydration. Plan: Physical therapy evaluation for possible SNF placement. (7) Aortic stenosis, severe Impression: The patient had an echocardiogram this morning for elevated troponins, and was found to have preliminary results of a severe aortic stenosis. ED notes indicate that he is scheduled for an aortic valve repair in the near future. 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 Plan: Treat acute illness and monitor fluid status.
[2018-04-02] MEDS ORDERED: ENOXAPARIN 80 MG/0.8 ML SYRINGE SUBQ SCH (16:00)
[2018-04-02] MEDS: cefTRIAXone 1 GM in SODIUM CHLORIDE 0.9% MINIBAG 100 ML IV SCH (16:44)
[2018-04-02 16:55] LABS: CALCIUM 9.4 mg/dL (8.5-10.3); CREATININE 3.5 mg/dL (0.6-1.2)
[2018-04-02] MEDS: HEPARIN 25000UNITS/500ML (D5W) 25,000 UNIT/500 ML BAG IV SCH (17:30)
--- NOTE | 2018-04-02 19:34 | HISTORY & PHYSICAL EXAMINATION ---
Chief Complaint - Chief Complaint Chief Complaint: "I have been sick for 3 days" History of Present Illness - Admitted From Admitted From:: home - History Obtained From History obtained from: patient, , ED physician Exam Limitations: Pt is hard of hearing - History of Present Illness HPI Comment/Other: Mr. Jose Daniel Watkins and is a very pleasant 83-year-old gentleman who has been feeling sick for the last 3 days with nausea vomiting and diarrhea, decreased p.o. intake, increasing weakness, and generalized malaise. Today while he was going to the bathroom he fell twice. His called for EMS to bring him to the emergency department and on initial exam his chest x-ray was negative but the patient was positive for leukocytosis at 17,000 and his urinalysis was found to have a large amount of white blood cells and bacteria. He will therefore be admitted for a urinary tract infection. History - Past Medical History Cardiovascular: reports: Hypertension, High cholesterol, Valve disorder Respiratory: reports: None Endocrine/Autoimmune: reports: Type 2 diabetes GI: reports: None : reports: None HEENT: reports: Chronic vision loss Psych: reports: None Musculoskeletal: reports: None Derm: reports: None MRSA Hx?: Yes - Past Surgical History General: reports: Cholecystectomy Cardiovascular: reports: CABG (6 vessel CABG), Pacemaker - Family & Social History Family History: Mother: (One brother of renal failure and cirrhosis, another brother of complications of agent orange and heart disease, and a sister of Alzheimer's disease), Diabetes, Type 2, Mental Illness, Father: , Cancer, Sister: , Alzheimer's Disease, Brother: Living arrangement: At home Living Situation: With spouse/s.o. - Substance History Use: Uses substance without health or social issues: NONE Abuse: Recurrent use of substance despite neg consequences: NONE Dependence: Experiences withdrawal or developed tolerances: NONE - POLST Patient has POLST: No POLST Status: Full Code Meds/Allgy - Home Medications Home Medications: Ambulatory Orders Medication Instructions Recorded Confirmed Allopurinol 100 mg PO DAILY 03/03/14 04/02/18 Furosemide [Lasix] 20 mg PO DAILY 03/03/14 04/02/18 Warfarin [Coumadin] 5 mg PO DAILY 03/03/14 07/27/17 Cholecalciferol (Vitamin D3) 1,000 unit PO DAILY 10/25/15 04/02/18 [Vitamin D3] Multivitamin [Daily Multiple 1 each PO DAILY 10/25/15 04/02/18 Vitamin] Atorvastatin Calcium [Lipitor] 80 mg PO QPM 04/02/18 04/02/18 Carvedilol [Carvedilol] 6.25 mg PO BID 04/02/18 04/02/18 Insulin Detemir [Levemir Flextouch] 15 unit SUBQ QPM 04/02/18 04/02/18 Sertraline HCl 50 mg PO DAILY 04/02/18 04/02/18 Tamsulosin [Flomax] 0.4 mg PO DAILY 04/02/18 04/02/18 - Allergies Allergies/Adverse Reactions: Allergies Allergy/AdvReac Type Severity Reaction Status Date / Time Sulfa (Sulfonamide Allergy Rash Verified 04/02/18 03:33 Antibiotics) Review of Systems - Constitutional Constitutional: reports: Fatigue, Fever, Chills, Malaise, Weakness - Eyes Eyes: denies: Pain, Irritation, Amaurosis, Blurred vision, Dipolpia - Ears, Nose & Throat Ears, Nose & Throat: reports: Hearing loss. denies: Ear pain, Tinnitus, Vertigo , Nasal pain, Nosebleeds, Hoarseness, Mouth lesions - Cardiovascular Cariovascular: denies: Irregular heart rate, Palpitations, Chest pain, Edema - Respiratory Respiratory: denies: Cough, Sputum production, Wheezing, Snoring, Hemoptysis, Orthopnea, SOB at rest - Gastrointestinal Gastrointestinal: reports: Diarrhea, Nausea, Vomiting. denies: Abdominal pain, Constipation, Rectal bleeding, Black stools, Bloody stools - Genitourinary Genitourinary: denies: Dysuria, Frequency, Urgency, Hematuria - Musculoskeletal Musculoskeletal: denies: Muscle pain, Back pain, Muscle aches, Stiffness - Integumentary Integumentary: denies: Rash, Pruritis, Lesions, Dryness - Neurological Neurological: denies: General weakness, Focal weakness, Headache, Dizziness - Psychiatric Psychiatric: denies: Depression, Anxiety, Suicidal, Hallucinations - Endocrine Endocrine: denies: Polyuria, Polydypsia, Polyphagia - Hematologic/Lymphatic Hematologic/Lymphatic: denies: Anemia, Bruising, Petechiae, Lymphadenopathy - All Other Systems All Other Systems: reports: Reviewed and negative Exam - Vital Signs Reviewed Vital Signs: Yes Vital Signs: Vital Signs x48h Temp Pulse Pulse Pulse Resp Resp Resp 04/02/18 15:30 37.5 C 89 16 04/02/18 14:18 30 H 04/02/18 13:00 37.4 C 92 22 04/02/18 11:40 88 35 H 22 BP BP Pulse Ox Pulse Ox Pulse Ox 04/02/18 15:30 112/68 92 04/02/18 14:18 95 04/02/18 13:00 101/57 L 95 04/02/18 11:40 109/63 92 94 - Physical Exam General Appearance: positive: No acute distress, Alert Eyes Bilateral: positive: Normal inspection, PERRL, EOMI, No lid inflammation, Conjunctivae nml, No scleral icterus ENT: positive: ENT inspection nml, Pharynx nml, No signs of dehydration Neck: positive: Nml inspection, Thyroid nml, No JVD, Trachea midline. negative : Thyromegaly Respiratory: positive: Chest non-tender, No respiratory distress, Breath sounds nml. negative: Wheezes, Rales, Rhonchi Cardiovascular: positive: Regular rate & rhythm, No murmur, No gallop Peripheral Pulses: positive: 1+ Abdomen: positive: Non-tender, No organomegaly, Nml bowel sounds, No distention. negative: Guarding, Rebound, Hepatomegaly, Splenomegaly Back: positive: Nml inspection. negative: CVA tenderness (R), CVA tenderness (L ) Skin: positive: Color nml, No rash, Warm, Dry. negative: Cyanosis Extremities: positive: Non-tender, Full ROM, Nml appearance, Pedal edema Neurologic/Psychiatric: positive: Oriented x3, CN's nml (2-12), Motor nml, Sensation nml, Mood/affect nml Conclusion/Plan - Problem List (1) UTI (urinary tract infection) Conclusion/Plan: We have started the patient on ceftriaxone for coverage and await results of microscopic testing. Qualifiers: Urinary tract infection type: acute cystitis Hematuria presence: without hematuria Qualified Code(s): N30.00 - Acute cystitis without hematuria (2) Congestive heart failure (CHF) Conclusion/Plan: The patient has pedal edema and a BNP of 508. He also has an elevated creatinine suggestive of acute kidney injury on superimposed on chronic kidney disease. We will continue the patient on his home dosing of Lasix and coreg, and will gently rehydrate him with diuresis as necessary. Qualifiers: Heart failure type: combined systolic and diastolic Heart failure chronicity: acute on chronic Qualified Code(s): I50.43 - Acute on chronic combined systolic (congestive) and diastolic (congestive) heart failure (3) CKD (chronic kidney disease) stage 4, GFR 15-29 ml/min Conclusion/Plan: The patient's creatinine in 2016 was 2.7 and 2017 was 2.8. It is 3.7 on admission and this is suggestive of dehydration. We will gently rehydrate the patient keeping in mind he has a history of congestive heart failure. (4) Diabetes mellitus type 2 in obese Conclusion/Plan: We will restart the patient on long-acting insulin with sliding scale coverage. Will place him on a diabetic diet.We will check the patient's A1c (5) Coronary artery disease Conclusion/Plan: Patient has a history of 6 vessel coronary artery bypass graft and 2 myocardial infarctions. We will continue him on his home dosing of Coumadin and obtain a PT/INR (6) Hyperlipidemia Conclusion/Plan: Presumably well-managed, we will continue the patient on his home dosing of atorvastatin. (7) History of gout Conclusion/Plan: We will hold the patient's allopurinol Due to his acute kidney injury. Will restart when he approaches his baseline creatinine. (8) Anxiety and depression Conclusion/Plan: Well-managed, we will continue patient on sertraline. - Lab Results Lab results reviewed: Yes Fish Bones: 04/02/18 04:45 04/02/18 16:40 - Diagnostic Imaging Results Diagnostic Imaging Results: positive: Final report reviewed Diagnostic Imaging Results Comments: EXAM: CHEST RADIOGRAPHY EXAM DATE: 04/02/2018 04:45 AM. CLINICAL HISTORY: Chest pain left sided. COMPARISON: CHEST 2 VIEW PA/LAT 07/27/2017. TECHNIQUE: 2 views. FINDINGS: Lungs/Pleura: No alveolar consolidation or pleural effusion seen. No pneumothorax. Mediastinum: Heart size is normal. Aortic atherosclerosis. Other: Median sternotomy and CABG. Left-sided implanted defibrillator is unchanged. IMPRESSION: 1. Postoperative changes. No acute abnormality seen. - EKG Results EKG Interpreted Independently: Yes EKG Comparison: Old EKG unavailable EKG Findings: Atrial fibrillation, rate controlled at 89. Core Measures - Anticipated LOS I expect patient to be DC'd or transferred within 96 hours.: Yes - DVT/VTE - Prophylaxis VTE/DVT Device ordered at admit?: Yes
[2018-04-02] MEDS: ATORVASTATIN 40 MG TABLET PO SCH (21:02)
[2018-04-02] MEDS: INSULIN GLARGINE 300 UNIT/3 ML PEN SUBQ SCH (21:05)
[2018-04-02] MEDS ORDERED: ACETAMINOPHEN 325 MG TABLET PO PRN (23:53)
[2018-04-03] MEDS: SODIUM CHLORIDE FLUSH 0.9% 10 ML SYRINGE IVP SCH ×4 (05:16→23:49)
[2018-04-03 06:59] LABS: HGB - HEMOGLOBIN 9.7 g/dL (14.0-18.0); MEAN CORPUSCULAR HEMOGLOBIN 29.4 pg (27.0-31.0); MEAN CORPUSCULAR HGB CONC 33.5 g/dL (32.0-36.0); MEAN CORPUSCULAR VOLUME 87.7 fL (80.0-94.0); MEAN PLATELET VOLUME 7.6 fL (7.4-11.4); RED BLOOD COUNT 3.3 10^6/uL (4.70-6.10); RED CELL DISTRIBUTION WIDTH 16.8 % (12.0-15.0); WHITE BLOOD COUNT 12.2 x10^3/uL (4.8-10.8)
[2018-04-03 07:12] LABS: ALBUMIN 2.6 g/dL (3.2-5.5); ALBUMIN/GLOBULIN RATIO 0.8 (1.0-2.2); BILIRUBIN,TOTAL 0.5 mg/dL (0.2-1.0); CALCIUM 9.1 mg/dL (8.5-10.3); CREATININE 3.6 mg/dL (0.6-1.2)
[2018-04-03] MEDS: INSULIN ASPART 300 UNIT/3 ML PEN SUBQ SCH ×4 (08:28→21:39)
[2018-04-03] MEDS: MULTIVITAMIN TABLET PO SCH (08:31)
[2018-04-03] MEDS: CARVEDILOL 3.125 MG TABLET PO SCH ×2 (08:31→21:38)
[2018-04-03] MEDS: CHOLECALCIFEROL 1,000 UNIT TABLET PO SCH (08:31)
[2018-04-03] MEDS: SERTRALINE 50 MG TABLET PO SCH (08:31)
[2018-04-03] MEDS: cefTRIAXone 1 GM in SODIUM CHLORIDE 0.9% MINIBAG 100 ML IV SCH (08:32)
[2018-04-03] MEDS: POLYETHYLENE GLYCOL 3350 17 GM PACKET PO SCH (08:32)
--- NOTE | 2018-04-03 09:01 | PROVIDER PROGRESS NOTE ---
Subjective - Prog Note Date Prog Note Date: 04/03/18 Prog Note Time: 09:01 - Subjective Pt reports feeling: No change Subjective: Nadir is receptive to "extra support" and agrees with a Palliative care consult. He denies increased SOB, chest pain, nausea, vomiting, or an increased cough. He cannot remember what he ate for breakfast. Current Medications - Current Medications Current Medications: Active Medications Acetaminophen (Tylenol) 650 mg PO Q4HR PRN PRN Reason: Pain or Fever > 38C (100.4F) Last Admin: 04/03/18 00:35 Dose: 650 mg Atorvastatin Calcium (Lipitor) 80 mg PO QPM [facility] Last Admin: 04/02/18 21:02 Dose: 80 mg Carvedilol (Coreg) 6.25 mg PO BID [facility] Last Admin: 04/03/18 08:31 Dose: 6.25 mg Cholecalciferol (Vitamin D3) 1,000 unit PO DAILY [facility] Last Admin: 04/03/18 08:31 Dose: 1,000 unit Heparin Sodium (Porcine) () 2,000 unit IVP Q6H PRN PRN Reason: Anti -Xa <0.2 Sodium Chloride (Normal Saline 0.9%) 1,000 mls @ 75 mls/hr IV .[id number] [facility] Last Infusion: 04/03/18 06:47 Dose: 75 mls/hr Ceftriaxone Sodium 1 gm/ (Sodium Chloride) 100 mls @ 200 mls/hr IV DAILY [facility] Last Admin: 04/03/18 08:32 Dose: 200 mls/hr Heparin Sodium/Dextrose () 25,000 unit in 500 mls @ 25.2 mls/hr IV .[id number] [facility] ; 15 UNIT/KG/HR PRN Reason: Protocol Last Titration: 04/03/18 00:57 Dose: 17 unit/kg/hr, 28.56 mls/hr Insulin Aspart (Novolog) 1 - 5 unit SUBQ 0800,1200,1700,2100 [facility] PRN Reason: Protocol Last Admin: 04/03/18 08:28 Dose: 1 unit Insulin Glargine (Lantus Solostar) 15 unit SUBQ QPM [facility] Last Admin: 04/02/18 21:05 Dose: 15 unit Lidocaine HCl (Xylocaine Jelly 2%) 2.5 ml TOP Q3H PRN PRN Reason: PAIN Multivitamins (Theragran) 1 tab PO DAILYWM [facility] Last Admin: 04/03/18 08:31 Dose: 1 tab Oxycodone HCl (Roxicodone) 5 mg PO Q4HR PRN PRN Reason: Pain 5 to 7 Polyethylene Glycol (Miralax) 17 gm PO DAILY [facility] Last Admin: 04/03/18 08:32 Dose: 17 gm Sertraline HCl (Zoloft) 50 mg PO DAILY [facility] Last Admin: 04/03/18 08:31 Dose: 50 mg Sodium Chloride (Normal Saline Flush 0.9%) 10 ml IVP PRN PRN PRN Reason: NEEDED PER PROVIDER ORDERS Sodium Chloride (Normal Saline Flush 0.9%) 10 ml IVP 0100,0900,1700 [facility] Last Admin: 04/03/18 08:33 Dose: Not Given Warfarin Sodium (Coumadin) 5 mg PO QDWARFARIN [facility] Last Admin: 04/02/18 13:36 Dose: 5 mg Allopurinol 100 mg PO DAILY 03/03/14 Furosemide [Lasix] 20 mg PO DAILY 03/03/14 Warfarin [Coumadin] 5 mg PO DAILY 03/03/14 Cholecalciferol (Vitamin D3) [Vitamin D3] 1,000 unit PO DAILY 10/25/15 Multivitamin [Daily Multiple Vitamin] 1 each PO DAILY 10/25/15 Atorvastatin Calcium [Lipitor] 80 mg PO QPM 04/02/18 Carvedilol [Carvedilol] 6.25 mg PO BID 04/02/18 Insulin Detemir [Levemir Flextouch] 15 unit SUBQ QPM 04/02/18 Sertraline HCl 50 mg PO DAILY 04/02/18 Tamsulosin [Flomax] 0.4 mg PO DAILY 04/02/18 Objective - Vital Signs/Intake & Output Reviewed Vital Signs: Yes Vital Signs: Vital Signs x48h Temp Pulse Resp BP Pulse Ox 04/03/18 08:02 36.3 C L 53 L 16 104/52 L 96 04/03/18 05:47 36.7 C 74 18 106/53 L 98 04/03/18 02:57 37.1 C 04/03/18 02:00 37.9 C H Intake & Output: Intake & Output 03/31/18 04/01/18 04/02/18 04/03/18 23:59 23:59 23:59 23:59 Intake Total 2892.5 925.24 Output Total 100 Balance 2792.5 925.24 - Objective General Appearance: positive: No acute distress, Alert Eyes Bilateral: positive: Normal inspection Eyes: OU Conjunctivae pale ENT: positive: ENT inspection nml, Pharyngeal erythema, Dry mucous membranes Neck: positive: No JVD, Lymphadenopathy (R), Lymphadenopathy (L), Stiff neck Respiratory: positive: Chest non-tender, Wheezes, Rhonchi Cardiovascular: positive: No gallop, Irregularly irregular, Tachycardia, Systolic murmur, Decreased pulse(s) Peripheral Pulses: 1+ Radial (R), 1+ Radial (L) Abdomen: positive: Non-tender, Nml bowel sounds, Other (obese, soft) Back: positive: Nml inspection Skin: positive: No rash, Warm, Dry Extremities: positive: Non-tender, Full ROM, Pedal edema (chronic, dependent, pitting, equal, BLE), Joint swelling Neurologic/Psychiatric: positive: Disoriented to time, Weakness, Sensory loss, Depressed mood/affect Reflexes: Bicep (R): 2+, Bicep (L): 2+ - Lab Results Fish Bones: 04/03/18 05:53 04/03/18 05:53 Other Labs: Lab Results x24hrs 04/03/18 04/03/18 04/03/18 Range/Units 05:53 05:53 05:53 WBC (4.8-10.8) x10^3/uL RBC (4.70-6.10) 10^6/uL Hgb (14.0-18.0) g/dL Hct (42.0-52.0) % MCV (80.0-94.0) fL MCH (27.0-31.0) pg MCHC (32.0-36.0) g/dL RDW (12.0-15.0) % Plt Count (130-450) 10^3/uL MPV (7.4-11.4) fL Anti-Xa Level 0.4 ( - 0.7) U/mL Sodium 130 L (135-145) mmol/L Potassium 4.5 (3.5-5.0) mmol/L Chloride 100 L (101-111) mmol/L Carbon Dioxide 23 (21-32) mmol/L Anion Gap 7.0 (6-13) BUN 62 H (6-20) mg/dL Creatinine 3.6 H (0.6-1.2) mg/dL Estimated GFR (MDRD) 16 L (>89) Glucose 172 H (70-100) mg/dL Calcium 9.1 (8.5-10.3) mg/dL Total Bilirubin 0.5 (0.2-1.0) mg/dL AST 21 (10-42) IU/L ALT 19 (10-60) IU/L Alkaline Phosphatase 82 (42-121) IU/L Troponin I (<0.49) ng/mL B-Natriuretic Peptide 474 H (5-100) pg/mL Total Protein 6.0 L (6.7-8.2) g/dL Albumin 2.6 L (3.2-5.5) g/dL Globulin 3.4 (2.1-4.2) g/dL Albumin/Globulin Ratio 0.8 L (1.0-2.2) Urine Color Urine Clarity (CLEAR) Urine pH (5.0-7.5) PH Ur Specific Mineral (1.002-1.030) Urine Protein (NEGATIVE) mg/dL Urine Glucose (UA) (NEGATIVE) mg/dL Urine Ketones (NEGATIVE) mg/dL Urine Occult Blood (NEGATIVE) Urine Nitrite (NEGATIVE) Urine Bilirubin (NEGATIVE) Urine Urobilinogen (NORMAL) E.U./dL Ur Leukocyte Esterase (NEGATIVE) Urine RBC (0-5) /HPF Urine WBC (0-3) /HPF Urine WBC Clumps Ur Squamous Epith Cells (<= Few) Urine Bacteria (None Seen) /HPF Ur Microscopic Review Urine Culture Comments 04/03/18 04/02/18 04/02/18 Range/Units 05:53 23:34 16:40 WBC 12.2 H (4.8-10.8) x10^3/uL RBC 3.30 L (4.70-6.10) 10^6/uL Hgb 9.7 L (14.0-18.0) g/dL Hct 29.0 L (42.0-52.0) % MCV 87.7 (80.0-94.0) fL MCH 29.4 (27.0-31.0) pg MCHC 33.5 (32.0-36.0) g/dL RDW 16.8 H (12.0-15.0) % Plt Count 158 (130-450) 10^3/uL MPV 7.6 (7.4-11.4) fL Anti-Xa Level 0.2 0.0 ( - 0.7) U/mL Sodium (135-145) mmol/L Potassium (3.5-5.0) mmol/L Chloride (101-111) mmol/L Carbon Dioxide (21-32) mmol/L Anion Gap (6-13) BUN (6-20) mg/dL Creatinine (0.6-1.2) mg/dL Estimated GFR (MDRD) (>89) Glucose (70-100) mg/dL Calcium (8.5-10.3) mg/dL Total Bilirubin (0.2-1.0) mg/dL AST (10-42) IU/L ALT (10-60) IU/L Alkaline Phosphatase (42-121) IU/L Troponin I (<0.49) ng/mL B-Natriuretic Peptide (5-100) pg/mL Total Protein (6.7-8.2) g/dL Albumin (3.2-5.5) g/dL Globulin (2.1-4.2) g/dL Albumin/Globulin Ratio (1.0-2.2) Urine Color Urine Clarity (CLEAR) Urine pH (5.0-7.5) PH Ur Specific Mineral (1.002-1.030) Urine Protein (NEGATIVE) mg/dL Urine Glucose (UA) (NEGATIVE) mg/dL Urine Ketones (NEGATIVE) mg/dL Urine Occult Blood (NEGATIVE) Urine Nitrite (NEGATIVE) Urine Bilirubin (NEGATIVE) Urine Urobilinogen (NORMAL) E.U./dL Ur Leukocyte Esterase (NEGATIVE) Urine RBC (0-5) /HPF Urine WBC (0-3) /HPF Urine WBC Clumps Ur Squamous Epith Cells (<= Few) Urine Bacteria (None Seen) /HPF Ur Microscopic Review Urine Culture Comments 04/02/18 04/02/18 04/02/18 Range/Units 16:40 16:40 14:00 WBC (4.8-10.8) x10^3/uL RBC (4.70-6.10) 10^6/uL Hgb (14.0-18.0) g/dL Hct (42.0-52.0) % MCV (80.0-94.0) fL MCH (27.0-31.0) pg MCHC (32.0-36.0) g/dL RDW (12.0-15.0) % Plt Count (130-450) 10^3/uL MPV (7.4-11.4) fL Anti-Xa Level ( - 0.7) U/mL Sodium 130 L (135-145) mmol/L Potassium 5.1 H (3.5-5.0) mmol/L Chloride 97 L (101-111) mmol/L Carbon Dioxide 25 (21-32) mmol/L Anion Gap 8.0 (6-13) BUN 62 H (6-20) mg/dL Creatinine 3.5 H (0.6-1.2) mg/dL Estimated GFR (MDRD) 17 L (>89) Glucose 210 H (70-100) mg/dL Calcium 9.4 (8.5-10.3) mg/dL Total Bilirubin (0.2-1.0) mg/dL AST (10-42) IU/L ALT (10-60) IU/L Alkaline Phosphatase (42-121) IU/L Troponin I 0.21 (<0.49) ng/mL B-Natriuretic Peptide (5-100) pg/mL Total Protein (6.7-8.2) g/dL Albumin (3.2-5.5) g/dL Globulin (2.1-4.2) g/dL Albumin/Globulin Ratio (1.0-2.2) Urine Color YELLOW Urine Clarity CLOUDY (CLEAR) Urine pH 6.0 (5.0-7.5) PH Ur Specific Mineral 1.015 (1.002-1.030) Urine Protein 100 H (NEGATIVE) mg/dL Urine Glucose (UA) NEGATIVE (NEGATIVE) mg/dL Urine Ketones NEGATIVE (NEGATIVE) mg/dL Urine Occult Blood MODERATE H (NEGATIVE) Urine Nitrite NEGATIVE (NEGATIVE) Urine Bilirubin NEGATIVE (NEGATIVE) Urine Urobilinogen 0.2 (NORMAL) (NORMAL) E.U./dL Ur Leukocyte Esterase LARGE H (NEGATIVE) Urine RBC 6-10 H (0-5) /HPF Urine WBC >25 H (0-3) /HPF Urine WBC Clumps PRESENT Ur Squamous Epith Cells RARE Squamous (<= Few) Urine Bacteria Many H (None Seen) /HPF Ur Microscopic Review INDICATED Urine Culture Comments INDICATED 04/02/18 Range/Units 10:51 WBC (4.8-10.8) x10^3/uL RBC (4.70-6.10) 10^6/uL Hgb (14.0-18.0) g/dL Hct (42.0-52.0) % MCV (80.0-94.0) fL MCH (27.0-31.0) pg MCHC (32.0-36.0) g/dL RDW (12.0-15.0) % Plt Count (130-450) 10^3/uL MPV (7.4-11.4) fL Anti-Xa Level ( - 0.7) U/mL Sodium (135-145) mmol/L Potassium (3.5-5.0) mmol/L Chloride (101-111) mmol/L Carbon Dioxide (21-32) mmol/L Anion Gap (6-13) BUN (6-20) mg/dL Creatinine (0.6-1.2) mg/dL Estimated GFR (MDRD) (>89) Glucose (70-100) mg/dL Calcium (8.5-10.3) mg/dL Total Bilirubin (0.2-1.0) mg/dL AST (10-42) IU/L ALT (10-60) IU/L Alkaline Phosphatase (42-121) IU/L Troponin I 0.20 (<0.49) ng/mL B-Natriuretic Peptide (5-100) pg/mL Total Protein (6.7-8.2) g/dL Albumin (3.2-5.5) g/dL Globulin (2.1-4.2) g/dL Albumin/Globulin Ratio (1.0-2.2) Urine Color Urine Clarity (CLEAR) Urine pH (5.0-7.5) PH Ur Specific Mineral (1.002-1.030) Urine Protein (NEGATIVE) mg/dL Urine Glucose (UA) (NEGATIVE) mg/dL Urine Ketones (NEGATIVE) mg/dL Urine Occult Blood (NEGATIVE) Urine Nitrite (NEGATIVE) Urine Bilirubin (NEGATIVE) Urine Urobilinogen (NORMAL) E.U./dL Ur Leukocyte Esterase (NEGATIVE) Urine RBC (0-5) /HPF Urine WBC (0-3) /HPF Urine WBC Clumps Ur Squamous Epith Cells (<= Few) Urine Bacteria (None Seen) /HPF Ur Microscopic Review Urine Culture Comments ABX Reporting Has patient been on IV antibiotics over the past 48 hours?: Yes Assessment/Plan - Problem List (1) UTI (urinary tract infection) Impression: A urine sample was obtained today which indicates UTI. Cultures grew out E. coli, with sensitivities to Tetracycline, AND Rocephin, so the oral antibiotic will be started in the AM. The patient had increased WBC count if 17.1 that has improved to 12.2. The patient was found to have a slightly elevated temp overnight, so blood cultures were drawn and are pending. Plan: Start Tetracycline in the AM for treatment of complicated UTI. Qualifiers: Urinary tract infection type: acute cystitis Hematuria presence: without hematuria Qualified Code(s): N30.00 - Acute cystitis without hematuria (2) Congestive heart failure (CHF) Impression: The patient had an elevated BNP of >500 and is prescribed lasix PO and coreg, and at home. He has a history of 6-vessel CABG that was done in the early . He remains with a left upper chest ICD. The patient continues to have profound KRISHNA on labs, so lasix is on hold. Preliminary echo results indicate a decreased EF of 50-55%, moderate to severe aortic stenosis, and pulmonary hypertension. Plan: Daily BNP, CMP and continue coreg. Qualifiers: Heart failure type: combined systolic and diastolic Heart failure chronicity: acute on chronic Qualified Code(s): I50.43 - Acute on chronic combined systolic (congestive) and diastolic (congestive) heart failure (3) Anticoagulant long-term use Impression: The patient is prescribed Warfarin at home. He continues to be sub theraputic with an INR of 1.7 today. Due to the patient's failing kidney's, a heparin gtt was started and continues today. We will continue coumadin at 5mg PO daily. Plan: Monitor labs and signs of bleeding. (4) Diabetes mellitus type 2 in obese Impression: The patient is insulin dependent at home and has an elevated Hemoglobin A1C upon admission of 8.6%. Early AM sugar today was 172. Plan: Continue Lantus scheduled, SSI. Daily labs and carb controlled diet. (5) CKD (chronic kidney disease) stage 4, GFR 15-29 ml/min Impression: The patient is noted to be in acute kidney failure with a GFR of just 13, a creatinine of 3.7 and this was likely a consequence of severe dehydration. Labs remain about the same today. He has heart failure, so fluid balance is an issue. Plan: Avoid nephrotoxins, gentle hydration and daily labs. (6) Multiple falls Impression: As per 's report, on the day of admission, the patient had up to 4 witnessed falls. This led to his current admission when he was found to be nauseated, vomiting and this was likely linked to this illness, dehydration. Plan: Physical therapy evaluation for possible SNF placement. (7) Aortic stenosis, severe Impression: The patient had an echocardiogram this morning for elevated troponins, and was found to have preliminary results of a severe aortic stenosis. ED notes indicate that he is scheduled for an aortic valve repair in the near future. 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 When speaking to the patient today, his plans are still to undergo a aortic valve replacement in the near future. Plan: Treat acute illness and monitor fluid status. 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 The patient had an elevated BNP of >500 and is prescribed lasix PO and coreg, and at home. He has a history of 6-vessel CABG that was done in the early . He remains with a left upper chest ICD. The patient continues to have profound KRISHNA on labs, so lasix is on hold. Preliminary echo results indicate a decreased EF of 50-55%, moderate to severe aortic stenosis, and pulmonary hypertension. Plan: Daily BNP, CMP and continue coreg. Qualifiers: Heart failure chronicity: acute on chronic Qualified Code(s): I50.43 - Acute on chronic combined systolic (congestive) and diastolic (congestive) heart failure
[2018-04-03 10:17] LABS: INR 1.7 (0.8-1.2); PT - PROTHROMBIN TIME 18.9 secs (9.9-12.6)
[2018-04-03] MEDS: HEPARIN 25000UNITS/500ML (D5W) 25,000 UNIT/500 ML BAG IV SCH (12:09)
[2018-04-03] MEDS: SODIUM CHLORIDE 0.9% 1,000 ML IV SCH (12:11)
[2018-04-03] MEDS: WARFARIN 5 MG TABLET PO SCH (14:43)
--- NOTE | 2018-04-03 16:58 | CONSULTATION NOTE ---
Palliative Care Consultation - Referral Referring Provider: Lilia PIZANO Time of Visit: [id number] Referral setting: Hospitalized patient Referral Reason: Acute on Chronic Heart failure/UTI/Aortic Stenosis/ Goals of Care - Information Sources Records reviewed: RN notes reviewed, Previous records reviewed History/Review of Systems obtained from: Patient Exam limitations: Clinical condition (patient admits to short term memory issues ) - History of Present Illness Brief History of Present Illness: This is an 83-year-old gentleman who has multiple comorbidities including but not limited to CAD with CABG, atrial fib with pacemaker/AICD on anticoag, acute on chronic systolic/diastolic CHF, CKD Stage IV followed by Dr. Mar, diabetes type 2, hx of urinary retention, and presents this hospitalization with acute UTI/E.coli and exacerbated CHF. His situation is made more complicated by his limitations regarding his retinopathy, he can no longer read, and can only make out shapes. Is also significantly hard of hearing, and often does not ask for corrections or clarification so I suspect he misses information. Prior to his hospitalization, he has been having decrease in functional status , this is mostly attributed to his overwhelming fatigue. He does have very poor activity tolerance, this is been attributed to his severe aortic stenosis. This was confirmed on an echo today, he is awaiting consultation with a cardiac surgeon in April regarding moving forward with this. He is seen up at [facility] by multiple providers including a jumpbasting facing baster, and visitor services coordinator, and now follow up with a cardiac surgeon. Of note he was also seen recently by the sleep center, and was to restart his nasal CPAP. Palliative care is to meet with patient regarding defining goals of care in the context of his multiple comorbidities, and functional and cognitive decline and upcoming decision-making. Medical/Surgical History - Past Medical History Cardiovascular: reports: Hypertension, High cholesterol, Valve disorder Respiratory: reports: Sleep apnea (patient had been on CPAP for 10-15 years; off recently as a "pain in the ass"; saw sleep specialist recently with dx obst. sleep apne/hypoxia syndrome to restart nasal CPAP-new mask ordered) Endocrine/Autoimmune: reports: Type 2 diabetes GI: reports: None : reports: Retention, Renal insuffiency HEENT: reports: Chronic vision loss (retinopathy), Chronic hearing loss Psych: reports: Anxiety Musculoskeletal: reports: Fatigue Derm: reports: None - Past Surgical History General: reports: Cholecystectomy Cardiovascular: reports: CABG (6 vessel CABG), Pacemaker, AICD - Substance History Use: Uses substance without health or social issues: NONE Abuse: Recurrent use of substance despite neg consequences: NONE Dependence: Experiences withdrawal or developed tolerances: NONE Social History - Living Situation Living arrangement: At home Living Situation: With spouse/s.o. 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 He has been on [employer], for the [employer], since 1965. He does have 3 sons, and 2 foster sons. He is worried about his Adriana, for which she has been for 60 years, prior to that they were sweethearts in high school+ for 5 years. He sees her as having some memory problems, and her health is compromised as well, worried that she is quite vulnerable to. They do have a caregiver from the [place] respite program, reports this is really helpful, but is worried about what would happen if things are set up enough if he were to pass and that he was a survivor. Family History - Family History Family History: Mother: (sister of Alz/brother of heart dx; one of renal iraj), Father: , Sister: , Brother: Medications/Allergies - Medications Active Medication List: Active Medications Acetaminophen (Tylenol) 650 mg PO Q4HR PRN PRN Reason: Pain or Fever > 38C (100.4F) Last Admin: 04/03/18 00:35 Dose: 650 mg Atorvastatin Calcium (Lipitor) 80 mg PO QPM [facility] Last Admin: 04/02/18 21:02 Dose: 80 mg Carvedilol (Coreg) 6.25 mg PO BID [facility] Last Admin: 04/03/18 08:31 Dose: 6.25 mg Cholecalciferol (Vitamin D3) 1,000 unit PO DAILY [facility] Last Admin: 04/03/18 08:31 Dose: 1,000 unit Heparin Sodium (Porcine) () 2,000 unit IVP Q6H PRN PRN Reason: Anti -Xa <0.2 Sodium Chloride (Normal Saline 0.9%) 1,000 mls @ 75 mls/hr IV .[id number] [facility] Last Admin: 04/03/18 12:11 Dose: 75 mls/hr Ceftriaxone Sodium 1 gm/ (Sodium Chloride) 100 mls @ 200 mls/hr IV DAILY [facility] Last Infusion: 04/03/18 09:02 Dose: Infused Heparin Sodium/Dextrose () 25,000 unit in 500 mls @ 25.2 mls/hr IV .[id number] ; 15 UNIT/KG/HR PRN Reason: Protocol Last Admin: 04/03/18 12:09 Dose: 17 unit/kg/hr, 28.56 mls/hr Insulin Aspart (Novolog) 1 - 5 unit SUBQ 0800,1200,1700,2100 [facility] PRN Reason: Protocol Last Admin: 04/03/18 11:49 Dose: 2 unit Insulin Glargine (Lantus Solostar) 15 unit SUBQ QPM [facility] Last Admin: 04/02/18 21:05 Dose: 15 unit Lidocaine HCl (Xylocaine Jelly 2%) 2.5 ml TOP Q3H PRN PRN Reason: PAIN Multivitamins (Theragran) 1 tab PO DAILYWM [facility] Last Admin: 04/03/18 08:31 Dose: 1 tab Oxycodone HCl (Roxicodone) 5 mg PO Q4HR PRN PRN Reason: Pain 5 to 7 Polyethylene Glycol (Miralax) 17 gm PO DAILY [facility] Last Admin: 04/03/18 08:32 Dose: 17 gm Sertraline HCl (Zoloft) 50 mg PO DAILY [facility] Last Admin: 04/03/18 08:31 Dose: 50 mg Sodium Chloride (Normal Saline Flush 0.9%) 10 ml IVP PRN PRN PRN Reason: NEEDED PER PROVIDER ORDERS Sodium Chloride (Normal Saline Flush 0.9%) 10 ml IVP 0100,0900,1700 [facility] Last Admin: 04/03/18 08:33 Dose: Not Given Warfarin Sodium (Coumadin) 5 mg PO QDWARFARIN [facility] Last Admin: 04/03/18 14:43 Dose: 5 mg Allopurinol 100 mg PO DAILY 03/03/14 Furosemide [Lasix] 20 mg PO DAILY 03/03/14 Warfarin [Coumadin] 5 mg PO DAILY 03/03/14 Cholecalciferol (Vitamin D3) [Vitamin D3] 1,000 unit PO DAILY 10/25/15 Multivitamin [Daily Multiple Vitamin] 1 each PO DAILY 10/25/15 Atorvastatin Calcium [Lipitor] 80 mg PO QPM 04/02/18 Carvedilol [Carvedilol] 6.25 mg PO BID 04/02/18 Insulin Detemir [Levemir Flextouch] 15 unit SUBQ QPM 04/02/18 Sertraline HCl 50 mg PO DAILY 04/02/18 Tamsulosin [Flomax] 0.4 mg PO DAILY 04/02/18 - Allergies Allergies/Adverse Reactions: Allergies Allergy/AdvReac Type Severity Reaction Status Date / Time Sulfa (Sulfonamide Allergy Rash Verified 04/02/18 03:33 Antibiotics) Review of Systems - Constitutional Constitutional: reports: Fatigue (patients most prominent symptom has been fatigue and activity intolerance;), Weight loss (reports "50 pounds" unable to describe over what time period) - Eyes Eyes: reports: Vision loss (can see my shape but not details; reports can't read ) - Ears, Nose & Throat Ears, Nose & Throat: reports: Hearing loss (easier to hear on left side), Other (has dentures) - Cardiovascular Cardiovascular: reports: Edema (intermittent LE), Exertional dyspnea, Decr. exercise tolerance. denies: Chest pain, Syncope - Respiratory Respiratory: reports: Cough (occasional early AM;), SOB with exertion. denies: SOB at rest - Gastrointestinal Gastrointestinal: reports: Early satiety. denies: Abdominal pain, Constipation , Nausea, Reflux/heartburn - Genitourinary Genitourinary: reports: Frequency, Urgency, Other (hx of urinary retention) - Musculoskeletal Musculoskeletal: reports: Stiffness, Muscle weakness, Other (uses cane at home) - Integumentary Integumentary: reports: Dryness - Neurological Neurological: reports: General weakness, Memory problems (reports intermittent memory issues; poor recall of history but not confused; is concerned at times;) - Psychiatric Psychiatric: reports: Anxiety (very much overwhelmed by his current situation; reports MD visits almost weekly-needs transportation; doesn't always understand what the information he is getting) - Endocrine Endocrine: reports: Diabetes type 2 (unknown length; does take his own BS) - Hematologic/Lymphatic Hematologic/Lymphatic: reports: Anemia - All Other Systems All Other Systems: reports: Reviewed and negative Physical Exam - Vital Signs Vital Signs: Vital Signs x48h Temp Pulse Resp BP Pulse Ox 04/03/18 15:29 36.9 C 70 16 107/49 L 98 04/03/18 12:47 36.5 C 74 16 94/47 L 96 - Physical Exam General Appearance: positive: No acute distress, Alert, Anxious Eyes Bilateral: positive: Normal inspection ENT: positive: No signs of dehydration Neck: positive: No JVD, Trachea midline Cardiovascular: positive: Irregular, Systolic murmur Respiratory: positive: Diminished in bases. negative: Wheezes, Rales, Rhonchi Abdomen: positive: Non-tender, Soft, Nml bowel sounds Skin: positive: Pallor, Dryness Extremities: positive: No pedal edema Neurologic/Psychiatric: positive: Oriented x3, Mood/affect nml, Weakness Palliative Care - POLST Patient has POLST: No Pain: No pain Tiredness/Fatigue: Severe (7-10) Drowsiness/Sedation: Mild (1-3) Nausea: None Depression: Mild (1-3) Anxiety: Moderate (4-6) Dyspnea: Moderate (4-6) Anorexia: Mild (1-3), Weight loss Sleep: Variable sleep pattern Constipation: No Feelings of wellbeing/Perceived Quality of Life: Fair, Acceptable, Worsening Performance Status: Reports patient is able to get along pretty well at home, is able to ambulate around the house, does need assistance with transportation. Does report they are living in a house that is accessible. Does sound though according to his description he has had some functional decline as far as what he is able to do her tolerate for activity. This is impacted both by his hearing and eyesight as well. - Palliative Care Discussion: Patient reports he is quite shy and pretty private about his thoughts, though he was more than willing to have a conversation about some of the things he is struggling with. He does understand his decline is "something and got to deal with at my age", that he is outlived everyone in his family, his hope was for another 5-10 years, he does perceive his quality of life is good even though he has cut back quite a bit on what he can do. In juxtaposition to this he says " I have no idea where I stand", that what he finds quite bothersome as he used to be fairly independent, and now he has to depend on others. In discussing his upcoming procedure and surgery, he does want it to be "justified and what I am going to do", wants to make sure that it is going to improve his quality and be worth the effort. He reports he does have an appointment in April. 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 They also have a foster son Hung, who lives in a home with technical support coordinator, he is 54 and they have cared for him since he was 5 months. Mostly physical disabilities , but is worried about the impact on him as well. Patient has been supported by the Diagnostic Technologist and his from the [facility], has not talked to him about his concerns or wishes around EOL, but feels could do so if he wanted to. Has not been able to attend for some time now , but can call for support as needed. 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 We did discuss about the role of durable power of health employee benefits attorney for health care, especially with his current hospitalization and possible future procedure. He feels it would be best to pick someone outside of his , at this point in time he is wondering about his friend Gigi Archer, he lives in [place], is retired business intelligence director. He had been the executor of his estate, and until recently and this was changed to family. We did discuss about having his son Jese, but worried about family dynamics etc. Agreed he would have a conversation with AdrianaGiig , and Jese in trying to define this in the near future. Though he cannot read related to his eyesight, he would accept a packet to help them with her decision -making in the future. In discussing with patient might want in the future, reviewed the implications of CODE STATUS, weighing benefits and burdens of procedures and decisions as they come up, and providing some information in writing to help his family in the future to assist with decision-making if he is unable to do it for himself. Discussed different scenarios and answered questions. Results - Lab Results Lab results reviewed: Yes Fish Bones: 04/03/18 05:53 04/03/18 05:53 Lab and Imaging Results: Lab Results x24hrs 04/03/18 04/03/18 04/03/18 Range/Units 12:39 09:52 05:53 WBC (4.8-10.8) x10^3/uL RBC (4.70-6.10) 10^6/uL Hgb (14.0-18.0) g/dL Hct (42.0-52.0) % MCV (80.0-94.0) fL MCH (27.0-31.0) pg MCHC (32.0-36.0) g/dL RDW (12.0-15.0) % Plt Count (130-450) 10^3/uL MPV (7.4-11.4) fL PT 18.9 H (9.9-12.6) secs INR 1.7 H (0.8-1.2) Anti-Xa Level 0.4 0.4 ( - 0.7) U/mL Sodium (135-145) mmol/L Potassium (3.5-5.0) mmol/L Chloride (101-111) mmol/L Carbon Dioxide (21-32) mmol/L Anion Gap (6-13) BUN (6-20) mg/dL Creatinine (0.6-1.2) mg/dL Estimated GFR (MDRD) (>89) Glucose (70-100) mg/dL Calcium (8.5-10.3) mg/dL Total Bilirubin (0.2-1.0) mg/dL AST (10-42) IU/L ALT (10-60) IU/L Alkaline Phosphatase (42-121) IU/L Troponin I (<0.49) ng/mL B-Natriuretic Peptide (5-100) pg/mL Total Protein (6.7-8.2) g/dL Albumin (3.2-5.5) g/dL Globulin (2.1-4.2) g/dL Albumin/Globulin Ratio (1.0-2.2) 04/03/18 04/03/18 04/03/18 Range/Units 05:53 05:53 05:53 WBC 12.2 H (4.8-10.8) x10^3/uL RBC 3.30 L (4.70-6.10) 10^6/uL Hgb 9.7 L (14.0-18.0) g/dL Hct 29.0 L (42.0-52.0) % MCV 87.7 (80.0-94.0) fL MCH 29.4 (27.0-31.0) pg MCHC 33.5 (32.0-36.0) g/dL RDW 16.8 H (12.0-15.0) % Plt Count 158 (130-450) 10^3/uL MPV 7.6 (7.4-11.4) fL PT (9.9-12.6) secs INR (0.8-1.2) Anti-Xa Level ( - 0.7) U/mL Sodium 130 L (135-145) mmol/L Potassium 4.5 (3.5-5.0) mmol/L Chloride 100 L (101-111) mmol/L Carbon Dioxide 23 (21-32) mmol/L Anion Gap 7.0 (6-13) BUN 62 H (6-20) mg/dL Creatinine 3.6 H (0.6-1.2) mg/dL Estimated GFR (MDRD) 16 L (>89) Glucose 172 H (70-100) mg/dL Calcium 9.1 (8.5-10.3) mg/dL Total Bilirubin 0.5 (0.2-1.0) mg/dL AST 21 (10-42) IU/L ALT 19 (10-60) IU/L Alkaline Phosphatase 82 (42-121) IU/L Troponin I (<0.49) ng/mL B-Natriuretic Peptide 474 H (5-100) pg/mL Total Protein 6.0 L (6.7-8.2) g/dL Albumin 2.6 L (3.2-5.5) g/dL Globulin 3.4 (2.1-4.2) g/dL Albumin/Globulin Ratio 0.8 L (1.0-2.2) 04/02/18 04/02/18 04/02/18 Range/Units 23:34 16:40 16:40 WBC (4.8-10.8) x10^3/uL RBC (4.70-6.10) 10^6/uL Hgb (14.0-18.0) g/dL Hct (42.0-52.0) % MCV (80.0-94.0) fL MCH (27.0-31.0) pg MCHC (32.0-36.0) g/dL RDW (12.0-15.0) % Plt Count (130-450) 10^3/uL MPV (7.4-11.4) fL PT (9.9-12.6) secs INR (0.8-1.2) Anti-Xa Level 0.2 0.0 ( - 0.7) U/mL Sodium 130 L (135-145) mmol/L Potassium 5.1 H (3.5-5.0) mmol/L Chloride 97 L (101-111) mmol/L Carbon Dioxide 25 (21-32) mmol/L Anion Gap 8.0 (6-13) BUN 62 H (6-20) mg/dL Creatinine 3.5 H (0.6-1.2) mg/dL Estimated GFR (MDRD) 17 L (>89) Glucose 210 H (70-100) mg/dL Calcium 9.4 (8.5-10.3) mg/dL Total Bilirubin (0.2-1.0) mg/dL AST (10-42) IU/L ALT (10-60) IU/L Alkaline Phosphatase (42-121) IU/L Troponin I (<0.49) ng/mL B-Natriuretic Peptide (5-100) pg/mL Total Protein (6.7-8.2) g/dL Albumin (3.2-5.5) g/dL Globulin (2.1-4.2) g/dL Albumin/Globulin Ratio (1.0-2.2) //18 Range/Units 16:40 WBC (4.8-10.8) x10^3/uL RBC (4.70-6.10) 10^6/uL Hgb (14.0-18.0) g/dL Hct (42.0-52.0) % MCV (80.0-94.0) fL MCH (27.0-31.0) pg MCHC (32.0-36.0) g/dL RDW (12.0-15.0) % Plt Count (130-450) 10^3/uL MPV (7.4-11.4) fL PT (9.9-12.6) secs INR (0.8-1.2) Anti-Xa Level ( - 0.7) U/mL Sodium (135-145) mmol/L Potassium (3.5-5.0) mmol/L Chloride (101-111) mmol/L Carbon Dioxide (21-32) mmol/L Anion Gap (6-13) BUN (6-20) mg/dL Creatinine (0.6-1.2) mg/dL Estimated GFR (MDRD) (>89) Glucose (70-100) mg/dL Calcium (8.5-10.3) mg/dL Total Bilirubin (0.2-1.0) mg/dL AST (10-42) IU/L ALT (10-60) IU/L Alkaline Phosphatase (42-121) IU/L Troponin I 0.21 (<0.49) ng/mL B-Natriuretic Peptide (5-100) pg/mL Total Protein (6.7-8.2) g/dL Albumin (3.2-5.5) g/dL Globulin (2.1-4.2) g/dL Albumin/Globulin Ratio (1.0-2.2) Impression and Recommendations - Palliative Care Impression: This is an 83-year-old gentleman acutely hospitalized for UTI with exacerbation of his CHF, and worsening of his kidney function CKD IV. Patient with moderate symptom burden of fatigue and anxiety. Palliative care to provide support regarding setting goals of care and completing advanced directives. Recommendations/Counseling Done: 1. Severe aortic stenosis. Patient pending appointment in April with cardiac surgeon, this is regarding AVR. Reviewed patient's concerns, and help to formulate some questions, given weighing benefits and burdens moving forward. 2. Fatigue, this is multifactorial in origin, including recent acute infection , acute on chronic kidney failure, anemia, sleep apnea, and cardiac compromise. Patient also presents with functional decline, would benefit from follow-up for rehab whether this is SNIF placement or home health. He was in 2016 at [facility], with a discharge at that point in time to [facility] 3. Anxiety. Patient is feeling overwhelmed with his multiple health issues, understanding his underlying diagnoses and implications, and loss of independence. Patient also feels his memory issues are impacting his ability to cope and assimilate information as well. Counseling for normalizing his feelings of grief and loss and concern. 4. Advanced care planning. Patient has done very little as far as putting any advanced directives in place. Counseling regarding how to choose a healthcare proxy, the role of the proxy, education regarding implications around code and CODE STATUS, and future decision making. Patient would like to continue conversation with his , and family, and get some of his documents in place. Packet provided for reference, and future documentation of wishes. In the context of prognostication. Patient falls on the Paulino index of looking at hospitalized adults 70 years and older and all causes 1 year mortality. This is a risk calculator that cannot predict the future for any one individual, but gives an estimate of how many people with similar risk factors will live and , but cannot identify who will live and he will . His score total is 9. Which puts him at 64% of the risk of 1 year mortality. Thank you Jese PIZANO for asking the palliative care consult service to be involved in the care of your patient, patient does have still the need for further support for advanced care planning and completion of directive. Will proceed to outpatient referral and follow-up if unable to complete this admission. Time Spent: 90 minutes with greater than 50% of this done in counseling and establishing rapport, eliciting goals of care, education regarding advanced care planning and anticipatory guidance.
[2018-04-03] MEDS: ATORVASTATIN 40 MG TABLET PO SCH (21:38)
[2018-04-03] MEDS: INSULIN GLARGINE 300 UNIT/3 ML PEN SUBQ SCH (21:39)
[2018-04-04] MEDS: HEPARIN 25000UNITS/500ML (D5W) 25,000 UNIT/500 ML BAG IV SCH (05:42)
[2018-04-04 05:54] LABS: MEAN CORPUSCULAR HEMOGLOBIN 29.4 pg (27.0-31.0); MEAN CORPUSCULAR HGB CONC 33.7 g/dL (32.0-36.0); MEAN CORPUSCULAR VOLUME 87.1 fL (80.0-94.0); MEAN PLATELET VOLUME 7.4 fL (7.4-11.4); RED BLOOD COUNT 3.06 10^6/uL (4.70-6.10); RED CELL DISTRIBUTION WIDTH 16.8 % (12.0-15.0); WHITE BLOOD COUNT 9.8 x10^3/uL (4.8-10.8)
[2018-04-04 06:12] LABS: ALBUMIN 2.3 g/dL (3.2-5.5); ALBUMIN/GLOBULIN RATIO 0.6 (1.0-2.2); BILIRUBIN,TOTAL 0.5 mg/dL (0.2-1.0); CALCIUM 9.3 mg/dL (8.5-10.3); CREATININE 3.3 mg/dL (0.6-1.2); TOTAL PROTEIN 5.9 g/dL (6.7-8.2)
[2018-04-04 06:21] LABS: INR 2.4 (0.8-1.2); PT - PROTHROMBIN TIME 26.4 secs (9.9-12.6)
[2018-04-04] MEDS: INSULIN ASPART 300 UNIT/3 ML PEN SUBQ SCH ×4 (07:40→21:01)
[2018-04-04 07:46] LABS: FACTOR XA 0.4 U/mL
[2018-04-04] MEDS: cefTRIAXone 1 GM in SODIUM CHLORIDE 0.9% MINIBAG 100 ML IV SCH (08:35)
[2018-04-04] MEDS: SODIUM CHLORIDE FLUSH 0.9% 10 ML SYRINGE IVP SCH ×2 (08:36→17:21)
[2018-04-04] MEDS: SERTRALINE 50 MG TABLET PO SCH (08:36)
[2018-04-04] MEDS: CARVEDILOL 3.125 MG TABLET PO SCH ×2 (08:36→21:01)
[2018-04-04] MEDS: POLYETHYLENE GLYCOL 3350 17 GM PACKET PO SCH (08:36)
[2018-04-04] MEDS: CHOLECALCIFEROL 1,000 UNIT TABLET PO SCH (08:36)
[2018-04-04] MEDS: MULTIVITAMIN TABLET PO SCH (08:36)
[2018-04-04] MEDS: FERROUS SULFATE 325 MG TABLET PO SCH (13:56)
[2018-04-04] MEDS: WARFARIN 5 MG TABLET PO SCH (13:56)
--- NOTE | 2018-04-04 14:18 | PROVIDER PROGRESS NOTE ---
Subjective - Prog Note Date Prog Note Date: 04/04/18 - Subjective Pt reports feeling: Improved Subjective: pt report he feels well and hope to be d/c to home. Per PT/OT, pt need to be more trained in SNF. at this point pt refused to be d/c to SNF. I called pt's , ADELIA. His hope pt can be d/c to SNF. But if pt continue to refuse d/c to SNF and want to d/c to home. His state she is ok, and will pick remover pt with caregiver on tomorrow. Current Medications - Current Medications Current Medications: Active Medications Acetaminophen (Tylenol) 650 mg PO Q4HR PRN PRN Reason: Pain or Fever > 38C (100.4F) Last Admin: 04/03/18 00:35 Dose: 650 mg Atorvastatin Calcium (Lipitor) 80 mg PO QPM [facility] Last Admin: 04/03/18 21:38 Dose: 80 mg Carvedilol (Coreg) 6.25 mg PO BID [facility] Last Admin: 04/04/18 08:36 Dose: 6.25 mg Cholecalciferol (Vitamin D3) 1,000 unit PO DAILY [facility] Last Admin: 04/04/18 08:36 Dose: 1,000 unit Ferrous Sulfate (Feosol) 325 mg PO DAILYWM [facility] Last Admin: 04/04/18 13:56 Dose: 325 mg Ceftriaxone Sodium 1 gm/ (Sodium Chloride) 100 mls @ 200 mls/hr IV DAILY [facility] Last Infusion: 04/04/18 09:05 Dose: Infused Insulin Aspart (Novolog) 1 - 5 unit SUBQ 0800,1200,1700,2100 [facility] PRN Reason: Protocol Last Admin: 04/04/18 12:41 Dose: 1 unit Insulin Glargine (Lantus Solostar) 15 unit SUBQ QPM [facility] Last Admin: 04/03/18 21:39 Dose: 15 unit Lidocaine HCl (Xylocaine Jelly 2%) 2.5 ml TOP Q3H PRN PRN Reason: PAIN Multivitamins (Theragran) 1 tab PO DAILYWM [facility] Last Admin: 04/04/18 08:36 Dose: 1 tab Oxycodone HCl (Roxicodone) 5 mg PO Q4HR PRN PRN Reason: Pain 5 to 7 Polyethylene Glycol (Miralax) 17 gm PO DAILY [facility] Last Admin: 04/04/18 08:36 Dose: Not Given Sertraline HCl (Zoloft) 50 mg PO DAILY [facility] Last Admin: 04/04/18 08:36 Dose: 50 mg Sodium Chloride (Normal Saline Flush 0.9%) 10 ml IVP PRN PRN PRN Reason: NEEDED PER PROVIDER ORDERS Sodium Chloride (Normal Saline Flush 0.9%) 10 ml IVP 0100,0900,1700 [facility] Last Admin: 04/04/18 08:36 Dose: 10 ml Warfarin Sodium (Coumadin) 5 mg PO QDWARFARIN [facility] Last Admin: 04/04/18 13:56 Dose: 5 mg Allopurinol 100 mg PO DAILY 03/03/14 Furosemide [Lasix] 20 mg PO DAILY 03/03/14 Warfarin [Coumadin] 5 mg PO DAILY 03/03/14 Cholecalciferol (Vitamin D3) [Vitamin D3] 1,000 unit PO DAILY 10/25/15 Multivitamin [Daily Multiple Vitamin] 1 each PO DAILY 10/25/15 Atorvastatin Calcium [Lipitor] 80 mg PO QPM 04/02/18 Carvedilol [Carvedilol] 6.25 mg PO BID 04/02/18 Insulin Detemir [Levemir Flextouch] 15 unit SUBQ QPM 04/02/18 Sertraline HCl 50 mg PO DAILY 04/02/18 Tamsulosin [Flomax] 0.4 mg PO DAILY 04/02/18 Objective - Vital Signs/Intake & Output Reviewed Vital Signs: Yes Vital Signs: Vital Signs x48h Temp Pulse Pulse Resp BP Pulse Ox 04/04/18 11:39 37.0 C 69 69 17 109/57 L 88 L 04/04/18 08:03 37.0 C 80 16 110/70 97 Intake & Output: Intake & Output 04/01/18 04/02/18 04/03/18 04/04/18 23:59 23:59 23:59 23:59 Intake Total 2892.5 2497.00 2741 Output Total 100 300 Balance 2792.5 2197.00 2741 - Objective General Appearance: positive: No acute distress, Alert. negative: Lethargic Eyes Bilateral: positive: Normal inspection, PERRL, No lid inflammation, Conjunctivae nml ENT: positive: ENT inspection nml, Pharynx nml, No signs of dehydration. negative: Purulent nasal drainage, Pharyngeal erythema, Oral lesions Neck: positive: Nml inspection, Thyroid nml, No JVD, Trachea midline. negative : Thyromegaly, Lymphadenopathy (R), Lymphadenopathy (L), Stiff neck, Swelling/ bruising, Tracheal deviation Respiratory: positive: Chest non-tender, No respiratory distress, Breath sounds nml. negative: Wheezes, Rales, Rhonchi Cardiovascular: positive: Irregularly irregular, Systolic murmur, Diastolic murmur. negative: Extrasystoles, Tachycardia, Bradycardia Peripheral Pulses: 2+ Radial (R), 2+ Radial (L), 2+ Dorsalis pedis (R), 2+ Dorsalis pedis (L) Abdomen: positive: Non-tender, No organomegaly, Nml bowel sounds, No distention. negative: Tenderness, Guarding, Rebound Back: positive: Nml inspection. negative: CVA tenderness (R), CVA tenderness (L ) Skin: positive: Color nml, No rash, Warm, Dry. negative: Cyanosis, Diaphoresis , Pallor Extremities: positive: Non-tender, Full ROM, Nml appearance. negative: Calf tenderness, Joint swelling, Louie's sign/cords Neurologic/Psychiatric: positive: Oriented x3, Sensation nml, Mood/affect nml. negative: Weakness, Sensory loss, Facial droop, Slurred/abnml speech, Depressed mood/affect - Lab Results Fish Bones: 04/04/18 05:44 04/04/18 05:44 Other Labs: Lab Results x24hrs 04/04/18 04/04/18 04/04/18 Range/Units 11:18 07:28 05:44 WBC (4.8-10.8) x10^3/uL RBC (4.70-6.10) 10^6/uL Hgb (14.0-18.0) g/dL Hct (42.0-52.0) % MCV (80.0-94.0) fL MCH (27.0-31.0) pg MCHC (32.0-36.0) g/dL RDW (12.0-15.0) % Plt Count (130-450) 10^3/uL MPV (7.4-11.4) fL PT 26.4 H (9.9-12.6) secs INR 2.4 H (0.8-1.2) Anti-Xa Level 0.4 ( - 0.7) U/mL Sodium (135-145) mmol/L Potassium (3.5-5.0) mmol/L Chloride (101-111) mmol/L Carbon Dioxide (21-32) mmol/L Anion Gap (6-13) BUN (6-20) mg/dL Creatinine (0.6-1.2) mg/dL Estimated GFR (MDRD) (>89) Glucose (70-100) mg/dL POC Whole Bld Glucose 154 H 91 (70 - 100) mg/dL Calcium (8.5-10.3) mg/dL Total Bilirubin (0.2-1.0) mg/dL AST (10-42) IU/L ALT (10-60) IU/L Alkaline Phosphatase (42-121) IU/L B-Natriuretic Peptide (5-100) pg/mL Total Protein (6.7-8.2) g/dL Albumin (3.2-5.5) g/dL Globulin (2.1-4.2) g/dL Albumin/Globulin Ratio (1.0-2.2) 04/04/18 04/04/18 04/04/18 Range/Units 05:44 05:44 05:44 WBC 9.8 (4.8-10.8) x10^3/uL RBC 3.06 L (4.70-6.10) 10^6/uL Hgb 9.0 L (14.0-18.0) g/dL Hct 26.6 L (42.0-52.0) % MCV 87.1 (80.0-94.0) fL MCH 29.4 (27.0-31.0) pg MCHC 33.7 (32.0-36.0) g/dL RDW 16.8 H (12.0-15.0) % Plt Count 158 (130-450) 10^3/uL MPV 7.4 (7.4-11.4) fL PT (9.9-12.6) secs INR (0.8-1.2) Anti-Xa Level ( - 0.7) U/mL Sodium 132 L (135-145) mmol/L Potassium 4.4 (3.5-5.0) mmol/L Chloride 101 (101-111) mmol/L Carbon Dioxide 23 (21-32) mmol/L Anion Gap 8.0 (6-13) BUN 61 H (6-20) mg/dL Creatinine 3.3 H (0.6-1.2) mg/dL Estimated GFR (MDRD) 18 L (>89) Glucose 99 (70-100) mg/dL POC Whole Bld Glucose (70 - 100) mg/dL Calcium 9.3 (8.5-10.3) mg/dL Total Bilirubin 0.5 (0.2-1.0) mg/dL AST 31 (10-42) IU/L ALT 27 (10-60) IU/L Alkaline Phosphatase 93 (42-121) IU/L B-Natriuretic Peptide 414 H (5-100) pg/mL Total Protein 5.9 L (6.7-8.2) g/dL Albumin 2.3 L (3.2-5.5) g/dL Globulin 3.6 (2.1-4.2) g/dL Albumin/Globulin Ratio 0.6 L (1.0-2.2) 04/03/18 04/03/18 04/03/18 Range/Units 20:46 16:33 11:10 WBC (4.8-10.8) x10^3/uL RBC (4.70-6.10) 10^6/uL Hgb (14.0-18.0) g/dL Hct (42.0-52.0) % MCV (80.0-94.0) fL MCH (27.0-31.0) pg MCHC (32.0-36.0) g/dL RDW (12.0-15.0) % Plt Count (130-450) 10^3/uL MPV (7.4-11.4) fL PT (9.9-12.6) secs INR (0.8-1.2) Anti-Xa Level ( - 0.7) U/mL Sodium (135-145) mmol/L Potassium (3.5-5.0) mmol/L Chloride (101-111) mmol/L Carbon Dioxide (21-32) mmol/L Anion Gap (6-13) BUN (6-20) mg/dL Creatinine (0.6-1.2) mg/dL Estimated GFR (MDRD) (>89) Glucose (70-100) mg/dL POC Whole Bld Glucose 194 H 186 H 225 H (70 - 100) mg/dL Calcium (8.5-10.3) mg/dL Total Bilirubin (0.2-1.0) mg/dL AST (10-42) IU/L ALT (10-60) IU/L Alkaline Phosphatase (42-121) IU/L B-Natriuretic Peptide (5-100) pg/mL Total Protein (6.7-8.2) g/dL Albumin (3.2-5.5) g/dL Globulin (2.1-4.2) g/dL Albumin/Globulin Ratio (1.0-2.2) 04/03/18 04/02/18 04/02/18 Range/Units 07:30 20:39 16:31 WBC (4.8-10.8) x10^3/uL RBC (4.70-6.10) 10^6/uL Hgb (14.0-18.0) g/dL Hct (42.0-52.0) % MCV (80.0-94.0) fL MCH (27.0-31.0) pg MCHC (32.0-36.0) g/dL RDW (12.0-15.0) % Plt Count (130-450) 10^3/uL MPV (7.4-11.4) fL PT (9.9-12.6) secs INR (0.8-1.2) Anti-Xa Level ( - 0.7) U/mL Sodium (135-145) mmol/L Potassium (3.5-5.0) mmol/L Chloride (101-111) mmol/L Carbon Dioxide (21-32) mmol/L Anion Gap (6-13) BUN (6-20) mg/dL Creatinine (0.6-1.2) mg/dL Estimated GFR (MDRD) (>89) Glucose (70-100) mg/dL POC Whole Bld Glucose 154 H 247 H 225 H (70 - 100) mg/dL Calcium (8.5-10.3) mg/dL Total Bilirubin (0.2-1.0) mg/dL AST (10-42) IU/L ALT (10-60) IU/L Alkaline Phosphatase (42-121) IU/L B-Natriuretic Peptide (5-100) pg/mL Total Protein (6.7-8.2) g/dL Albumin (3.2-5.5) g/dL Globulin (2.1-4.2) g/dL Albumin/Globulin Ratio (1.0-2.2) 04/02/18 04/02/18 Range/Units 11:38 07:38 WBC (4.8-10.8) x10^3/uL RBC (4.70-6.10) 10^6/uL Hgb (14.0-18.0) g/dL Hct (42.0-52.0) % MCV (80.0-94.0) fL MCH (27.0-31.0) pg MCHC (32.0-36.0) g/dL RDW (12.0-15.0) % Plt Count (130-450) 10^3/uL MPV (7.4-11.4) fL PT (9.9-12.6) secs INR (0.8-1.2) Anti-Xa Level ( - 0.7) U/mL Sodium (135-145) mmol/L Potassium (3.5-5.0) mmol/L Chloride (101-111) mmol/L Carbon Dioxide (21-32) mmol/L Anion Gap (6-13) BUN (6-20) mg/dL Creatinine (0.6-1.2) mg/dL Estimated GFR (MDRD) (>89) Glucose (70-100) mg/dL POC Whole Bld Glucose 292 H 270 H (70 - 100) mg/dL Calcium (8.5-10.3) mg/dL Total Bilirubin (0.2-1.0) mg/dL AST (10-42) IU/L ALT (10-60) IU/L Alkaline Phosphatase (42-121) IU/L B-Natriuretic Peptide (5-100) pg/mL Total Protein (6.7-8.2) g/dL Albumin (3.2-5.5) g/dL Globulin (2.1-4.2) g/dL Albumin/Globulin Ratio (1.0-2.2) ABX Reporting Has patient been on IV antibiotics over the past 48 hours?: Yes Assessment/Plan - Problem List (1) UTI (urinary tract infection) Impression: Impression: 04/04.UA is positive Ecoli and sensitivity for Rocephin continue Rocephin A urine sample was obtained today which indicates UTI. Cultures grew out E. coli, with sensitivities to Tetracycline, AND Rocephin, so the oral antibiotic will be started in the AM. The patient had increased WBC count if 17.1 that has improved to 12.2. The patient was found to have a slightly elevated temp overnight, so blood cultures were drawn and are pending. Plan: Start Tetracycline in the AM for treatment of complicated UTI. (2) Congestive heart failure (CHF) Impression: 04/04ECHO reveals EF 50-55% with severe aortic stenosis Daily BNP, CMP and continue coreg, daily weight, follow up out-pt raw sampler The patient had an elevated BNP of >500 and is prescribed lasix PO and coreg, and at home. He has a history of 6-vessel CABG that was done in the early . He remains with a left upper chest ICD. The patient continues to have profound KRISHNA on labs, so lasix is on hold. Preliminary echo results indicate a decreased EF of 50-55%, moderate to severe aortic stenosis, and pulmonary hypertension. Plan: Daily BNP, CMP and continue coreg. (3) Anticoagulant long-term use Impression: 04/04INR 2.6. stop Heparin and continue Coumadin daily PT/INR The patient is prescribed Warfarin at home. He continues to be sub theraputic with an INR of 1.7 today. Due to the patient's failing kidney's, a heparin gtt was started and continues today. We will continue coumadin at 5mg PO daily. Plan: Monitor labs and signs of bleeding. (4) Diabetes mellitus type 2 in obese Impression: table, continue slide scale, [facility], hypoglycemia protocol The patient is insulin dependent at home and has an elevated Hemoglobin A1C upon admission of 8.6%. Early AM sugar today was 172. Plan: Continue Lantus scheduled, SSI. Daily labs and carb controlled diet. 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 Labs remain about the same today. He has heart failure, so fluid balance is an issue. Plan: Avoid nephrotoxins, gentle hydration and daily labs. (6) Multiple falls Impression: pt refused to be d/c to SNF. will encourage with pt for SNF. Discussed with pt' s and answered all her questions. As per 's report, on the day of admission, the patient had up to 4 witnessed falls. This led to his current admission when he was found to be nauseated, vomiting and this was likely linked to this illness, dehydration. Plan: Physical therapy evaluation for possible SNF placement. (7) Aortic stenosis, severe Impression: 04/04 stable now, follow up out-pt raw sampler The patient had an echocardiogram this morning for elevated troponins, and was found to have preliminary results of a severe aortic stenosis. ED notes indicate that he is scheduled for an aortic valve repair in the near future. 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 When speaking to the patient today, his plans are still to undergo a aortic valve replacement in the near future. Plan: Treat acute illness and monitor fluid status. 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 pt denies. FIT test negative (10) anemia 04/04 HGB 9.0. pt has hx of stage 4 renal failure, continue managed by his beater machine operator as out-pt iron study, since MCV less than 90 daily ferrous daily CBC, vital monitor Qualifiers: Urinary tract infection type: acute cystitis Hematuria presence: without hematuria Qualified Code(s): N30.00 - Acute cystitis without hematuria
[2018-04-04 16:23] LABS: MEAN RETIC VALUE 99.2; RED BLOOD COUNT 3.15 10^6/uL (4.70-6.10)
[2018-04-04 16:46] LABS: % IRON SATURATION 8 % (20-50); IRON 13 ug/dL (45-182); TOTAL IRON BINDING CAPACITY 162 ug/dL (250-450); TRANSFERRIN 116 mg/dL (180-329)
[2018-04-04 17:05] LABS: FERRITIN 276.2 ng/mL (23.9-336.2)
[2018-04-04] MEDS: INSULIN GLARGINE 300 UNIT/3 ML PEN SUBQ SCH (21:01)
[2018-04-04] MEDS: ATORVASTATIN 40 MG TABLET PO SCH (21:01)
[2018-04-05] MEDS: SODIUM CHLORIDE FLUSH 0.9% 10 ML SYRINGE IVP SCH ×2 (00:51→08:52)
[2018-04-05 06:01] LABS: MEAN CORPUSCULAR HGB CONC 32.8 g/dL (32.0-36.0); MEAN CORPUSCULAR VOLUME 88.4 fL (80.0-94.0); MEAN PLATELET VOLUME 7.5 fL (7.4-11.4); RED BLOOD COUNT 3.11 10^6/uL (4.70-6.10); RED CELL DISTRIBUTION WIDTH 16.8 % (12.0-15.0); WHITE BLOOD COUNT 7.5 x10^3/uL (4.8-10.8)
[2018-04-05 06:04] LABS: INR 2.7 (0.8-1.2); PT - PROTHROMBIN TIME 29.8 secs (9.9-12.6)
[2018-04-05 06:11] LABS: ALBUMIN 2.4 g/dL (3.2-5.5); ALBUMIN/GLOBULIN RATIO 0.7 (1.0-2.2); BILIRUBIN,TOTAL 0.3 mg/dL (0.2-1.0); CALCIUM 9.2 mg/dL (8.5-10.3); CREATININE 3.2 mg/dL (0.6-1.2); MAGNESIUM 2.1 mg/dL (1.7-2.8)
[2018-04-05] MEDS ORDERED: FUROSEMIDE 20 MG TABLET PO ONE (08:00)
[2018-04-05] MEDS ORDERED: FUROSEMIDE 20 MG TABLET PO SCH (08:00)
[2018-04-05] MEDS: CARVEDILOL 3.125 MG TABLET PO SCH (08:50)
[2018-04-05] MEDS: cefTRIAXone 1 GM in SODIUM CHLORIDE 0.9% MINIBAG 100 ML IV SCH (08:50)
[2018-04-05] MEDS: FERROUS SULFATE 325 MG TABLET PO SCH (08:50)
[2018-04-05] MEDS: SERTRALINE 50 MG TABLET PO SCH (08:51)
[2018-04-05] MEDS: MULTIVITAMIN TABLET PO SCH (08:51)
[2018-04-05] MEDS: INSULIN ASPART 300 UNIT/3 ML PEN SUBQ SCH ×2 (08:51→12:16)
[2018-04-05] MEDS: CHOLECALCIFEROL 1,000 UNIT TABLET PO SCH (08:51)
[2018-04-05] MEDS: POLYETHYLENE GLYCOL 3350 17 GM PACKET PO SCH (08:52)
--- NOTE | 2018-04-05 10:42 | Discharge Plan ---
"Discharge Plan for SNF / HUAN - DC Plan and Transition Orders Disposition: 03 SNF DC/Xfer Condition: Poor SNF Transition Orders: Admit to: [[facility]] under the care of [Doctor Destiny Yip] Discharge Diagnosis: [UTI, CHF, DM2, CKD, Afib with Coumadin, Aortic Stenosis] Medicare Certification: I certify that Post Hospital ch[facility] care is medically necessary on a continuing basis for any of the conditions for which she/he is receiving care during hospitalization. Notify PCP of admission and forward orders to primary provider for signature. Weight on admission and [86kg]. Call PCP immediately if weight increases by [4 ] pounds or if patient develops dyspnea, chest pain/tightness or edema. House Bowel Program: [Yes] If no BM after 2 days, nurse may give M.O.M. 30ml PO PRN and /or ducolax Supp 1 AR and /or RADHA 250mg P.O., and/or senna 1-2 tabs PO. On day 3 nurse may give repeat above order until residents constipation is resolved. Immunizations: Annual Influenza Vaccine: [Yes]. (between Jun 10 and January 07.) Unless allergy or already given Two-Step PPD: [Yes] per [facility] [phone] or appropriate documentation of approved exceptions Treatments & Other Orders: [pt may follow up at arrival to [facility] , continue PT/OT] Oxygen Orders: [PRN] Lab Tests or X-Rays Orders: [Follow up DR. Yip as needed] Orthopedic Orders: [n]. Medications: PLEASE REFER TO THE DISCHARGE MEDICATION LIST. Insulin Orders? [Yes, as the home meds] Diagnosis: Diabetes Initiate hypo and hyperglycemia protocols for BG <70 and BG >375. May check BG prn for signs/symptoms of dysglycemia. Frequency of BG checks: [AC/Meal/HS] Basal Insulin: [] Lantus 100 units / ml inject subq as follows: [] [] Other: [] Correction Insulin: - Select the type of insulin below [Choose: Novolog/Humalog]100 units /ml insulin inject subq per orders indicate below [] LOW DOSE [] MODERATE DOSE [] MODERATE/HIGH DOSE [] HIGH DOSE GB UNITS GB UNITS GB UNITS GB UNITS 61-140 0 UNITS 61-140 0 UNITS 61-140 0 UNITS 61-140 0 UNITS 141-175 1 UNITS 141-175 1 UNITS 141-175 2 UNITS 141-175 3 UNITS 176-225 2 UNITS 176-225 3 UNITS 176-225 4 UNITS 176-225 5 UNITS 226-275 3 UNITS 226-275 5 UNITS 226-275 6 UNITS 226-275 7 UNITS 276-325 4 UNITS 276-325 7 UNITS 276-325 8 UNITS 276-325 9 UNITS 326-375 5 UNITS 326-375 9 UNITS 326-375 10 UNITS 326-375 11 UNITS >375 CONTACT MD >375 CONTACT MD >375 CONTACT MD >375 CONTACT MD Custom Dosing: [Choose: None/Novolog/Humalog] 100 units/ml Insulin inject subq as follows: GB Units 61-140 [] Units 141-175 [] Units 176-225 [] Units 226-275 [] Units 276-325 []Units 326-375 [] Units >375 Contact MD Allergies and Adverse Reactions: Allergies Allergy/AdvReac Type Severity Reaction Status Date / Time Sulfa (Sulfonamide Allergy Rash Verified 04/02/18 03:33 Antibiotics) - Medications New Prescriptions: Ferrous Sulfate 325 mg PO DAILY #20 tablet Nitrofurantoin Monohyd/M-Cryst [Macrobid 100 mg Capsule] 100 mg PO BID #10 capsule - Diet Type: Geriatric Texture: Regular Liquids: Thin May have monthly special meal: Yes - Therapies | Activity Therapy: Evaluation | Treat if indicated: PT, OT Rehabilitation Potential: Maximize functional status Activity: Activity as Tolerated Weight Bearing: Full Weight Additional Instructions: pt may follow up at arrival to [facility], continue PT/OT Follow Up: pt may follow up at arrival to [facility], continue PT/OT"
--- NOTE | 2018-04-05 11:09 | DISCHARGE SUMMARY ---
Discharge Summary Discharge Date: 04/05/18 Discharging Provider: DAVIS Primary Care Provider: Dr. Naveen Rock Condition at Discharge: Poor Discharge Disposition: 03 SNF DC/Xfer Discharge Facility Name: [facility] - DIAGNOSES Admission Diagnoses: (1) UTI (urinary tract infection) (2) Congestive heart failure (CHF) (3) CKD (chronic kidney disease) stage 4, GFR 15-29 ml/min (4) Diabetes mellitus type 2 in obese (5) Coronary artery disease (6) Hyperlipidemia (7) History of gout (8) Anxiety and depression Discharge Diagnoses with Status of Each Condition: (1) UTI (urinary tract infection) after treatment, pt is alert and oriented. wBC is normal. UA sensitivity study revealed sensitivity to nitrofurantoin, which is prescribed to pt for continuing antibiotics course. (2) Congestive heart failure (CHF) stable, follow up PCP and blueprint machine operator to manage. Clinic pt does not present shortness of breath, does not present acute cardiac distress. 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 - HPI History of Present Illness: refer from Dr. Manzano's HPI for pt as the following: Mr. Sky I6 and is a very pleasant 83-year-old gentleman who has been feeling sick for the last 3 days with nausea vomiting and diarrhea, decreased p.o. intake, increasing weakness, and generalized malaise. Today while he was going to the bathroom he fell twice. His called for EMS to bring him to the emergency department and on initial exam his chest x-ray was negative but the patient was positive for leukocytosis at 17,000 and his urinalysis was found to have a large amount of white blood cells and bacteria. He will therefore be admitted for a urinary tract infection. - ALLERGIES Allergies/Adverse Reactions: Allergies Allergy/AdvReac Type Severity Reaction Status Date / Time Sulfa (Sulfonamide Allergy Rash Verified 04/02/18 03:33 Antibiotics) - MEDICATIONS Home Medications: Ambulatory Orders Medication Instructions Recorded Confirmed Allopurinol 100 mg PO DAILY 03/03/14 04/02/18 Furosemide [Lasix] 20 mg PO DAILY 03/03/14 04/02/18 Warfarin [Coumadin] 5 mg PO DAILY 03/03/14 04/03/18 Cholecalciferol (Vitamin D3) 1,000 unit PO DAILY 10/25/15 04/02/18 [Vitamin D3] Multivitamin [Daily Multiple 1 each PO DAILY 10/25/15 04/02/18 Vitamin] Atorvastatin Calcium [Lipitor] 80 mg PO QPM 04/02/18 04/02/18 Carvedilol 6.25 mg PO BID 04/02/18 04/02/18 Insulin Detemir [Levemir Flextouch] 15 unit SUBQ QPM 04/02/18 04/02/18 Sertraline HCl 50 mg PO DAILY 04/02/18 04/02/18 Tamsulosin [Flomax] 0.4 mg PO DAILY 04/02/18 04/02/18 Ferrous Sulfate 325 mg PO DAILY #20 tablet 04/05/18 Nitrofurantoin Monohyd/M-Cryst 100 mg PO BID #10 capsule 04/05/18 [Macrobid 100 mg Capsule] - PHYSICAL EXAM AT DISCHARGE General Appearance: positive: No acute distress, Alert. negative: Lethargic Eyes Bilateral: positive: Normal inspection, PERRL, No lid inflammation, Conjunctivae nml ENT: positive: ENT inspection nml, Pharynx nml, No signs of dehydration. negative: Purulent nasal drainage, Pharyngeal erythema, Oral lesions Neck: positive: Nml inspection, Thyroid nml, Trachea midline. negative: Thyromegaly, Lymphadenopathy (R), Lymphadenopathy (L), Stiff neck, Swelling/ bruising, Tracheal deviation Respiratory: positive: Chest non-tender, No respiratory distress, Breath sounds nml. negative: Wheezes, Rales, Rhonchi Cardiovascular: positive: Regular rate & rhythm, Systolic murmur, Diastolic murmur. negative: Irregularly irregular, Extrasystoles, Tachycardia, Bradycardia, PMI displaced laterally Peripheral Pulses: positive: 2+ Abdomen: positive: Non-tender, No organomegaly, Nml bowel sounds, No distention. negative: Tenderness, Guarding, Rebound Back: positive: Nml inspection. negative: CVA tenderness (R), CVA tenderness (L ) Skin: positive: Color nml, No rash, Warm, Dry. negative: Cyanosis, Diaphoresis , Pallor Extremities: positive: Non-tender, Full ROM, Nml appearance. negative: Calf tenderness, Joint swelling, Louie's sign/cords Neurologic/Psychiatric: positive: Oriented x3, Motor nml, Sensation nml, Mood/ affect nml. negative: Sensory loss, Facial droop, Slurred/abnml speech, Depressed mood/affect - LABS Result Diagrams: 04/05/18 05:40 04/05/18 05:40 - FOLLOW UP Follow Up: pt may follow up at arrival to [facility], continue PT/OT - TIME SPENT Time Spent in Discharge (Minutes): 50
[2018-04-05 11:28] VITALS: BP 130/65
== END 2018-04-05 13:10 | DRG 689 ==
LOC: EDUNIT# → ED 03:28 → SUPCPDRO 03:28 → MS2 06:45
PROVIDERS: ADMIT Hospitalist; ATTEND Nurse Practitioner Gerontology
DX: R11.2 Nausea with vomiting, unspecified (principal); R19.7 Diarrhea, unspecified; N30.00 Acute cystitis without hematuria; R53.1 Weakness; N28.9 Disorder of kidney and ureter, unspecified; I11.0 Hypertensive heart disease with heart failure; I50.43 Acute on chronic combined systolic (congestive) and diastolic (congestive) heart failure; N18.4 Chronic kidney disease, stage 4 (severe); N17.9 Acute kidney failure, unspecified; E11.9 Type 2 diabetes mellitus without complications; Z95.0 Presence of cardiac pacemaker; I13.0 Hypertensive heart and chronic kidney disease with heart failure and stage 1 through stage 4 chronic kidney disease, or unspecified chronic kidney disease; B96.20 Unspecified Escherichia coli [E. coli] as the cause of diseases classified elsewhere; F17.200 Nicotine dependence, unspecified, uncomplicated; E86.0 Dehydration; E11.22 Type 2 diabetes mellitus with diabetic chronic kidney disease; E11.319 Type 2 diabetes mellitus with unspecified diabetic retinopathy without macular edema; I25.10 Atherosclerotic heart disease of native coronary artery without angina pectoris; E78.5 Hyperlipidemia, unspecified; M10.9 Gout, unspecified; F41.9 Anxiety disorder, unspecified; F32.9 Major depressive disorder, single episode, unspecified; I35.0 Nonrheumatic aortic (valve) stenosis; I27.20 Pulmonary hypertension, unspecified; D63.1 Anemia in chronic kidney disease; H91.93 Unspecified hearing loss, bilateral; G47.33 Obstructive sleep apnea (adult) (pediatric); I48.91 Unspecified atrial fibrillation; R41.3 Other amnesia; Z51.5 Encounter for palliative care; I25.2 Old myocardial infarction; Z79.01 Long term (current) use of anticoagulants; Z91.81 History of falling; Z79.899 Other long term (current) drug therapy; Z79.4 Long term (current) use of insulin; Z95.1 Presence of aortocoronary bypass graft; Z95.810 Presence of automatic (implantable) cardiac defibrillator; Z63.6 Dependent relative needing care at home; Z95.2 Presence of prosthetic heart valve
CPT/HCPCS: 36415; 71046; 80048; 80053; 81001; 81003; 82270; 82274; 82607; 82728; 83036; 83540; 83615; 83690; 83735; 83880; 84134; 84443; 84466; 84484; 85025; 85027; 85044; 85520; 85610; 87040; 87086; 87181; 87640; 93005; 93306; 96361; 96374; 99223; 99284

== ENCOUNTER 2018-04-30 05:09 | Outpatient (CLI) | payer MEDICARE, BC | END 2018-04-30 05:10 | disposition short-term general hospital (02) | LOC: EMS 05:09 | PROVIDERS: ATTEND Surgery | DX: M79.621 Pain in right upper arm (principal); Z79.01 Long term (current) use of anticoagulants; W19.XXXA Unspecified fall, initial encounter; Y92.002 Bathroom of unspecified non-institutional (private) residence as the place of occurrence of the external cause | CPT/HCPCS: A0425; A0427 ==

== ENCOUNTER 2018-09-04 03:34 | Outpatient (CLI) | payer MEDICARE, BC | END 2018-09-04 03:35 | disposition short-term general hospital (02) | LOC: EMS 03:34 | PROVIDERS: ATTEND Surgery | DX: R05 Cough (principal) | CPT/HCPCS: A0425; A0429 ==

== ENCOUNTER 2018-09-17 06:54 | Outpatient (CLI) | payer MEDICARE, BC | END 2018-09-17 06:55 | disposition EMS.NT | LOC: EMS 06:54 | PROVIDERS: ATTEND Surgery | DX: Z03.89 Encounter for observation for other suspected diseases and conditions ruled out (principal) ==

== ENCOUNTER 2018-09-17 12:14 | Outpatient (CLI) | payer MEDICARE, BC | END 2018-09-17 12:15 | disposition short-term general hospital (02) | LOC: EMS 12:14 | PROVIDERS: ATTEND Surgery | DX: M25.551 Pain in right hip (principal); W18.39XA Other fall on same level, initial encounter; Y92.002 Bathroom of unspecified non-institutional (private) residence as the place of occurrence of the external cause | CPT/HCPCS: A0425; A0427 ==